=== PATIENT | male | born 1940 | race Caucasian/White ===

== ENCOUNTER 2022-12-16 04:12 | Inpatient (IN) | payer MEDICARE, OTHER, SELFPAY ==
[2022-12-16] VITALS (29 sets, daily range): BP systolic 115–159; BP diastolic 62–79; PULSE 96–134; RESP 14–22; TEMP 36.9–39.5; O2SAT 91–95
--- NOTE | 2022-12-16 04:15 | RT.EKG_ITS ---
APPROVED REPORT Exam: Resting ECG Reason for Exam: rapid heart rate Patient Location: E HR:117 bpm ECG Measurements Heart Rate 117 AXIS LA 180 P 55 QRSd 83 QRS -7 QT 282 T 188 QTc 394 Conclusion Sinus tachycardia...rate> 99 Atrial premature complex...SV complex w/ short R-R interval Repol abnrm suggests ischemia, diffuse leads...ST-T neg, ant/lat/inf I have reviewed and interpreted ECG and agree with software generated interpretation.
--- NOTE | 2022-12-16 04:15 | DI.CT_ITS ---
Exam(s) CT CHEST PE ABD PELVIS W EXAM: CT CHEST PE ABD PELVIS W CLINICAL HISTORY: cough, sob, fever, recent long trip, r/o pe. TECHNIQUE: Imaging Protocol: Axial CT angiography was performed with multi-slice acquisition and mu lti-planar and/or 3D reconstructions. CONTRAST MATERIAL: Intravenous: Omnipaque 350 Contrast volume:100 ml COMPARISON: CR CHEST 2 VIEWS PA,LAT from 02/27/2016 FINDINGS: CHEST: Pulmonary Arteries: No evidence of filling defect to suggest pulmonary emboli. Tracheobronchial tree: Patent where visualized. Mediastinum and Iris: Mildly enlarged subcarinal lymph nodes, presumably reactive. Small hiatal cassie ia. Pulmonary parenchyma: Underlying emphysematous changes. No acute infiltrates right upper lobe and po sterior right lower lobe. Pleura: No effusion or pneumothorax. Heart: The heart is not dilated. No coronary artery calcifications are seen. Aorta: Descending aorta 3.3 cm. Bones: Normal. Tubes, Catheters, and Lines: None ABDOMEN: Liver: Normal density. Cyst superior left lobe. No suspicious mass. Portal, Superior Mesenteric, and Splenic Veins: Unremarkable. Gallbladder and Biliary Tract: No radiodense calculus or dilation. Pancreas: Normal density, no abnormal calcifications or inflammatory process. Spleen: Normal. Adrenals: No masses seen. Kidneys: Normal size, contour and axis. No radiodense stones or obstructive uropathy. No masses seen. Abdominal Aorta: Abdominal portion non-dilated. Rsht-hb-vwxsmsbe atherosclerotic changes. Bowel: Diverticulosis. No evidence of diverticulitis. No obstruction or bowel wall thickening. Peritoneal Cavity: No ascites, collection or mesenteric inflammatory response. Lymph Nodes: Within normal limits. Bones: Degenerative changes. Soft Tissues: Unremarkable. PELVIS: Bladder: Symmetric distention, no gross wall thickening. Reproductive Organs: Unremarkable as visualized. Lymph Nodes: Within normal limits. Bones: Within normal limits for age.. IMPRESSION: 1. No evidence of pulmonary embolism. Right upper and lower lobe infiltrates. Underlying emphysemato us changes. 2. No acute abdominal or pelvic process. RADIATION DOSE DELIVERED: 853.52mGy.cm Total DLP DATA REPOSITORY: All CT scans at this facility are submitted to the National Radiology Data Registry (NRDR) Dose Index Registry (DIR) with the [employer] (ACR). RADIATION OPTIMIZATION: All CT scans at this facility use at least one of these dose optimization te chniques: automated exposure control; mA and/or kV adjustment per patient size (includes targeted exa ms where dose is matched to clinical indication); or iterative reconstruction.
--- NOTE | 2022-12-16 04:30 | W.ED.GENAD ---
Discharge Plan Disposition Patient Disposition: Admit to [facility] Condition: Improving Discharge Details Chief Complaint: Fever Clinical Impression: Community acquired pneumonia Primary Care Provider: Marcella,Local ED Provider: Chuy Cat Home Meds and New Rx's Prescriptions: No Action lansoprazole 30 MG capsule,delayed release(DR/EC) 30 mg PO DAILY vitamin E 1,000 UNIT capsule 1 cap PO DAILY Centrum Silver 1 EACH tablet 1 tab PO DAILY Medical Decision Making 82-year-old male with no significant past medical history except for mild reflux presents today for evaluation of nausea, vomiting, diarrhea, fever, chills, cough and shortness of breath. Patient just got back from a trip to [place]. They got back just 3 to 4 days ago. He states that he was doing well until last night when he woke up coughing, short of breath, and then developed subsequent nausea vomiting diarrhea and fever. He denies any chest pain. He does admit to slight difficulty breathing before but feels better now. He denies symptoms like this before. He denies any hematemesis, melena, or acholic stool. No trauma. No headache or neck pain. No other complaints at this time. He did take Tylenol prior to arrival. Family who is at bedside states that his temperature before arrival was greater than 103 at home. Exam demonstrates very interactive and pleasant male, who is tachycardic. Blood pressure elevated. EKG shows diffuse anterior lateral depressions. Concern for sepsis, PE, or pneumonia. Will evaluate for concerning etiologies, monitor closely and reassess. We will rehydrate and get blood cultures as well. 5:49 AM Heart rate has come down from the 130s to the low 100s. Blood pressure remained stable. Laboratory work-up shows no white count yet, but there is a notable left shift. Lactate is 1.8, procalcitonin is mildly elevated at 0.9. Troponin normal. We are still pending formal read from CT scan, COVID flu and RSV are negative. Upon my review of the CAT scan I do see evidence of notable pneumonia, no large PEs. We will start ceftriaxone and azithromycin for community-acquired pneumonia with atypical coverage. With the patient's diarrhea I have sent a Legionella antigen test. Patient denies being around any significant water sources that could accumulate mold or bacteria in that regard, but they did just go up to [place] camp 3 days ago and start that however they were not certainly deep into it. With the patient's age, sepsis presentation, risk factors I do feel that he would benefit from at least 24 hours of inpatient IV antibiotics. 6:[address] scan shows no evidence of pulmonary embolism. It does confirm evidence of infiltrates in the right upper lobe. I suspect this pneumonia is the cause of his fever chills and tachycardia and infection. Antibiotics have been started. I did contact the hospitalist Dr. Calhoun, he agrees with the assessment and plan. Patient will be admitted. I will place bridging orders at his request on his behalf. I have extensively reviewed the treatment plan with the patient. I have addressed all patient concerns at this time. I have also discussed the plan with the admitting physician and they agree with the current assessment and plan and have agreed to assume responsibility for the patient. All parties demonstrate verbal understanding and agreement with our assessment and plan at this time. The documentation in this chart was dictated using [employer] dictation software. Please excuse any dictation errors. FINDINGS: Pulmonary arteries: No pulmonary artery filling defects. Aorta: Descending aorta minimally dilated to 3.3 cm. No aortic aneurysm. No aortic dissection. Lungs: Moderate to severe emphysema. Superimposed, scattered infiltrates in right upper lobe. Pleural spaces: Unremarkable. No pneumothorax. No pleural effusion. Heart: Heart normal in size. Heart RV/LV ratio: RV/LV ratio is 1.2. Coronary arteries: No coronary artery calcifications. Lymph nodes: Unremarkable. No enlarged lymph nodes. Diaphragm: Small to moderate size hiatal hernia. Liver: Circumscribed 2.2 cm lesion in left lobe of liver, favored to be a cys Bones/joints: The spine demonstrates mild degenerative changes at multiple levels. Soft tissues: Unremarkable. IMPRESSION: 1. No pulmonary artery embolism demonstrated. 2. No aortic aneurysm or dissection. 3. Emphysema. 4. Superimposed scattered infiltrates in right upper lobe. 5. Hiatal hernia. Thank you for allowing us to participate in the care of your patient. Dictated and Authenticated by: Kolton Dillon DO 12/16/2022 6:16 AM Eastern Time ([place] & [place]) HPI General Date/Time Provider Initiated Documentation: 12/16/22 04:22. HPI Narrative: 82-year-old male with no significant past medical history except for mild reflux presents today for evaluation of nausea, vomiting, diarrhea, fever, chills, cough and shortness of breath. Patient just got back from a trip to [place]. They got back just 3 to 4 days ago. He states that he was doing well until last night when he woke up coughing, short of breath, and then developed subsequent nausea vomiting diarrhea and fever. He denies any chest pain. He does admit to slight difficulty breathing before but feels better now. He denies symptoms like this before. He denies any hematemesis, melena, or acholic stool. No trauma. No headache or neck pain. No other complaints at this time. He did take Tylenol prior to arrival. Family who is at bedside states that his temperature before arrival was greater than 103. Related Data Home Medications Medication Instructions Recorded Confirmed lansoprazole 30 mg capsule,delayed 30 mg PO DAILY 01/12/13 12/16/22 release dciakwdq-ann-rgyoz acid 0.4 1 tab PO DAILY 04/09/15 12/16/22 mg-lycopene 300 mcg-lutein 250 mcg tablet (Centrum Silver) vitamin E 670 mg (1,000 unit) 1 cap PO DAILY 04/09/15 12/16/22 capsule Allergies Allergy/AdvReac Type Severity Reaction Status Date / Time No Known Allergies Allergy Unverified 02/27/16 10:56 General Stated Complaint: Fever JALYN: 3 Review of Systems All systems reviewed & are unremarkable except as noted in HPI and below PFSH All Active Problems (Updated 12/16/22 @ 06:25 by Chuy Cat DO) Community acquired pneumonia (Acute) Social History Smoking/Tobacco Use Status: Former Tobacco Use Smoking risk assessment performed?: Yes Alcohol Intake: current Alcohol Intake frequency: a few times a week Drug use: Never Substance use type: does not use Do you feel safe at home: Yes Do you feel safe in your relationship?: Yes Exam Narrative Exam Narrative: 1.Const: Well-nourished, Well-developed, appearing stated age 2.Eyes: PERRL, no conjunctival injection, and symmetrical lids. 3.ENT: Atraumatic external nose and ears. Dry MM. Neck: Symmetric, trachea midline, No thyromegaly. No nuchal rigidity 4.CVS: +S1/S2, No murmurs or gallops. Peripheral pulses 2+ and equal in all extremities. Brisk capillary refill in all extremities. 5.RESP: Unlabored respiratory effort. Clear to auscultation bilaterally. No wheezes rales or rhonchi 6.GI: Soft, Nontender/Nondistended, No hepatosplenomegaly. No guarding or rebound. 7.MSK: Normocephalic/Atraumatic, Extremities w/o deformity or ttp No cyanosis or clubbing, Normal movement of all extremities 8.Skin: Warm, Dry. No rashes or lesions. 9.Neuro: dispute coordinator II-XII grossly intact. Sensation grossly intact, no focal neurologic deficits. 10.Psych: (AAO) x3. Appropriate mood and affect Course Vital Signs Vital signs: Vital Signs Temperature 37.1 C 12/16/22 04:18 Pulse 124 H 12/16/22 04:18 Respiratory Rate 18 12/16/22 04:18 Blood Pressure 152/78 H 12/16/22 04:18 Pulse Oximetry 94 12/16/22 04:18 Temperature 37.1 C 12/16/22 04:18 Pulse 124 H 12/16/22 04:18 Respiratory Rate 18 12/16/22 04:18 Respiratory Effort Normal, Non-Labored 12/16/22 04:24 Blood Pressure 152/78 H 12/16/22 04:18 Blood Pressure Position Supine 12/16/22 04:18 Pulse Oximetry 94 12/16/22 04:18 Oxygen Delivery Method Room Air 12/16/22 04:18 Oxygen Flow Rate 0 12/16/22 04:18 Lab/Test Results Lab/Test Results: 12/16/22 04:28 Blood Blood Culture - Pending 12/16/22 04:28 Blood Blood Culture - Pending POCUS Exam (ED) Limited Cardiac Exam DATE OF EXAM: 12/16/22 TIME OF EXAM: 04:42 PROVIDER THAT PERFORMED THE STUDY: Chuy Cat IS THIS A REPEAT EXAM DURING THIS ENCOUNTER: no REASON FOR EXAM: Dyspnea VISUALIZED STRUCTURES: Left atrium, Left ventricle and Right ventricle VIEW OBTAINED: Parasternal long-axis PERTINENT FINDINGS/IMPRESSION: Other (Concern for apex dysfunction) Exam complete PAWSS Have you Been Recently Intoxicated or Drunk Within the Last 30 days?: No Have you Ever Experienced Previous Episodes of Alcohol Withdrawal?: No Have you ever Experienced Withdrawal Seizures?: No Have you ever Experienced Delirium Tremens(DT)s?: No Have you ever undergone Alcohol Rehabilitation Treatment (i.e, inpt ot outpatient treatment programs)?: No Have you ever Experienced Blackouts?: No Have you ever Combined Alcohol with other Downers within the last 90 days?: No Have you ever Combined Alcohol with any other Substance of Abuse during the last 90 days?: No Positive Blood Alcohol level on Presentation? [PCS.BAL]: No Evidence of Increased Autonomic Activity (i.e. HR>120, tremor, sweating, agitation, nausea)?: No Result: 0
[2022-12-16 04:39] LABS: BE (Venous) 1 mmol/L (-2-3); HCO3 (Venous) 24 mmol/L (23-28); O2 Sat (Venous) 79 %; TCO2 (Venous) 22 mmol/L (24-29); pCO2 (Venous) 34 mmHg (41-51); pH (Venous) 7.46 (7.31-7.41); pO2 (Venous) 40 mmHg
[2022-12-16] MEDS: Normal Saline 1,000 ML 1000 ML IV (04:39)
[2022-12-16 04:40] LABS: Abs Immature Grans 0.03 10^3/uL (0.0-0.06); Absolute Basophil Count 0.04 10^3/uL (0.0-0.2); Absolute Eosinophil Count 0.02 10^3/uL (0.0-0.7); Absolute Lymphocyte Count 0.67 10^3/uL (1.2-3.4); Absolute Monocyte Count 0.59 10^3/uL (0.1-0.8); Absolute Neutrophil Count 9.19 10^3/uL (1.2-6.7); Basophils % 0.4; Eosinophils % 0.2; HCT 34.8 % (40.0-50.0); HGB 12.2 g/dL (13.5-17.5); Immature Grans % 0.3; Lactate 1.8 mmol/L (0.6-1.4); Lymphocytes % 6.4; MCH 32.4 pg (27.0-33.0); MCHC 35.1 % (32.0-36.0); MCV 93 fL (80-95); MPV 9.5 fL (8.0-11.0); Monocytes % 5.6; Neutrophils % 87.1; Platelet Count 199 10^3/uL (130-400); RBC 3.76 10^6/uL (4.36-5.78); RDW 13.4 % (11.8-14.1); RDW-SD 45.4 fL; WBC 10.54 10^3/uL (4.4-10.8)
--- NOTE | 2022-12-16 04:53 | NUR.NOTE ---
Nursing Note: Pt comes to the ED via walk-in, states that he has been having NVD since yesterday and today began to have elevated temp. the pt states increased weakness and slightly dizzy, denies CP but stated he did have some SOB. Pt states he takes iron so he normally has dark stools. prior to coming to the ED his gave him x2 po Tylenol which helped decrease his fever. IV established, EKG,monitor and labs including x2 sets BC drawn. Pt states he recently arrived back to [place] after driving home form [place] and staying in [place] for a night. Pt denies any pain and has a steady gait. added he had covid last month from a cruise he was on and was treated for that while on the ship.
[2022-12-16 05:04] LABS: ALT 28 U/L (16-63); AST 31 U/L (15-37); Albumin 3.9 g/dL (3.4-5.0); Alkaline Phosphatase 81 U/L (46-116); Anion Gap 10.2 mmol/L (3-11); BUN 17 mg/dL (7-18); Bilirubin, Total 0.9 mg/dL (0.2-1.0); CO2 23.8 mmol/L (21.0-32.0); CREATININE 1.1 mg/dL (0.70-1.30); Calcium 9.5 mg/dL (8.5-10.1); Chloride 102 mmol/L (98-107); Estimated GFR 66.61 (mL/min/1.73m2); Glucose 118 mg/dL (74-106); Potassium 3.6 mmol/L (3.5-5.1); Sodium 136 mmol/L (136-145); TSH (W/Ref FT4) 1.36 uIU/mL (0.36-3.74); Total Protein 7.7 g/dL (6.4-8.2); Troponin I < 50 ng/L (<or=60)
[2022-12-16 05:10] LABS: Procalcitonin 0.9 ng/mL
--- OUTSIDE RECORDS SUMMARY | 2022-12-16 05:10 | XMS_ITS | Summary of Care ---
Author Name Unknown Organization [facility] Address [id number] [place] [id number] Care Team Providers Care Adobe Block Maker Name Role Phone Unassigned, PCP - Unable to obtain Primary Care Physician Unavailable Encounter [facility] [id number] Date(s): 09/26/22 - 09/26/[address] [address]- [place] Encounter Diagnosis COVID-19(Discharge Diagnosis) - 09/26/22 Attending Physician: Adelso Carreno APRN Admitting Physician: JOSSELYN , [facility] Allergies, Adverse Reactions, Alerts No Known Allergies Assessment and Plan Extracted from: Title:[facility] Note Author:Adelso Carreno APRN Date:09/26/22 1.??COVID-19??(COVID-19)(U07 .1) Prescription for Paxlovid and benzonatate sent to pharmacy.?? Discussed with patient if??problems obtain a prescription to reach out to his PCP.?? Discussed with patient isolation protocols. Take medication ??as directed follow up with PCP or urgent care if no improvement Call or go to the ER if the following occur: Increasing Pain, Fever increases, Chest Pain, shortness of breath ? Patient education provided with Visit Summary? Ordered: benzonatate, 1-2 caps, PO, 3xDaily, PRN Cough and congestion, X 10 day(s), # 30 cap(s), 0 Refill(s), Pharmacy: [facility]/pharmacy #[id number], 1-2 caps PO 3xDaily,x10 day(s),PRN:Cough and congestion, 1, 182.88, cm, 09/26/22 11:34:00 EST, Height cm, 61.235, kg, 09/26/22 11:34:... nirmatrelvir-ritonavir, See Instructions, PO, 2xDaily, 150 mg nirmatrelvir (one 150 mg tablets) with 100 mg ritonavir (one 100 mg tablet), with both tablets taken together twice daily for 5 days, # 1 EA, 0 Refill(s), Pharmacy: [facility]/pharmacy #[id number], 150 mg nirmatrelvir (one 150... ?? Medications benzonatate 100 mg oral capsule 1-2 caps, PO, 3xDaily, PRN Cough and congestion, X 10 day(s), # 30 cap(s), 0 Refill(s), Pharmacy: [facility]/pharmacy #[id number], 1-2 caps PO 3xDaily,x10 day(s),PRN:Cough and congestion, 1, 182.88, cm, 09/26/22 11:34:00 EST, Height cm, 61.235, kg, 09/26/22 11:34:... Start Date: 09/26/22 Stop Date: 10/06/22 Status: Ordered Paxlovid 150 mg-100 mg (150 mg-100 mg Dose) oral tablet See Instructions, PO, 2xDaily, 150 mg nirmatrelvir (one 150 mg tablets) with 100 mg ritonavir (one 100 mg tablet), with both tablets taken together twice daily for 5 days, # 1 EA, 0 Refill(s), Pharmacy: [facility]/pharmacy #[id number], 150 mg nirmatrelvir (one 150... Start Date: 09/26/22 Stop Date: 10/02/22 Status: Ordered Problem List Condition Confirmation Course Effective Dates Status Health St [facility] Informant History of COVID-19 Confirmed Active Vital Signs Most recent to oldest [Reference Range]: 1 Temperature Oral [96.4-99.1 DegF] 100.4 DegF *HI* (09/26/22 11:34 AM) Pulse Rate [60-110 bpm] 110 bpm (09/26/22 11:34 AM) Respiratory Rate [12-20 br/min] 18 br/mi n (09/26/22 11:34 AM) Mean Arterial Pressure, Cuff 119 mmHg (09/26/22:34 AM) Blood Pressure [90-120/60-90 mmHg] 166/9 5mmHg *HI* (09/26/22:34 AM) Weight, Actual kg 61.235 kg (09/26/22:34 AM) Weight, Actual lbs 135 lb (09/26/22 AM) Weight, Actual lbs - manual 135 lb (09/26/22:34 AM) Measured Weight Yes (09/26/22 AM) Height cm 182.88 cm (09/26/22:34 AM) EHUM Responses Feet/Inches (09/26/22 AM) Height Feet with Inches 6 ft (09/26/22 AM) Height Inches 72 inch(es) (09/26/22: AM) Body Surface Area 1.7637 (09/26/22: AM) Body Mass Index (BMI) 18.3 kg/m2 (09/26/22 AM) Forbes Body Weight Calculated 77.6 kg (09/26/22: AM) Note * Adelso Carreno APRN: PERFORM Event Display: [facility] Provider Notes Authored Date: [id number] Chief Complaint Cough, fever x 3 days. Tylenol at 9am Visit Information Primary Care Physician:?Unassigned , PCP - Unable to obtain Referring Physician: History of Present Illness 82-year-old male accompanied by presents to clinic with complaint of??nausea, cough, fever,??congestion??and sore throat x3 days.?? States he recently returned from a cruise.?? States he took Tylenol with some relief.?? States last dose at 9 AM.?? States positive COVID-vaccine.?Denies any history of liver or kidney disease.?Denies taking cholesterol medication.?? Denies vomiting, diarrhea, abdominal pain, shortness of breath or chest pain. Review of Systems Constitutional-see HPI HEENT- SEE HPI Respiratory- SEE HPI Cardiovascular-No chest pain, no palpitations Abdomen- No diarrhea, No nausea or vomiting, No cramping abdominal pain, no rectal bleeding Genitourinary- No dysuria, No hematuria, no frequency, no urgency Musculoskeletal-No joint pain, no muscle pain, no swelling Psychiatry- No anxiety/ depression, No insomnia, No memory loss Skin- No rash, masses or lesions Physical Exam Vitals & Measurements T:??100.4?F ??(Oral)?? HR:??110??(Pulse)?? RR:??18?? BP:??166/95?? SpO2:??96%?? HT:??182.88??cm?? HT:??72??inch(es)?? WT:??135??lb?? WT:??61.235??kg?? BMI:??18.3?? General-Well nourished , well developed, No acute distress HEENT- NCAT, TM clear, clear nasal discharge, Mild Pharyngeal erythema, Mild nasal erythema. No cervical lymphadenopathy Respiratory- No retractions noted, Breath sounds were CTA bilaterally, No rales, rhonchi ??or wheezes heard, nonproductive cough noted CVS- Regular rate and rhythm, no murmurs or additional sounds, S1 and S2 heard Skin - Normal color, No rashes or masses Psych- AOx3, normal mood, no anxiety/ depression, judgement -good Assessment/Plan 1.??COVID-19??(COVID-19)(U07.1) Prescription for Paxlovid and benzonatate sent to pharmacy.?? Discussed with patient if??problems obtain a prescription to reach out to his PCP.?? Discussed with patient isolation protocols. Take medication ??as directed follow up with PCP or urgent care if no improvement Call or go to the ER if the following occur: Increasing Pain, Fever increases, Chest Pain, shortness of breath Patient education provided with Visit Summary?? Ordered: benzonatate, 1-2 caps, PO, 3xDaily, PRN Cough and congestion, X 10 day(s), # 30 cap(s), 0 Refill(s), Pharmacy: [facility]/pharmacy #[id number], 1-2 caps PO 3xDaily,x10 day(s),PRN:Cough and congestion, 1, 182.88, cm, 09/26/22 11:34:00 EST, Height cm, 61.235, kg, 09/26/22 11:34:... nirmatrelvir-ritonavir, See Instructions, PO, 2xDaily, 150 mg nirmatrelvir (one 150 mg tablets) with 100 mg ritonavir (one 100 mg tablet), with both tablets taken together twice daily for 5 days, # 1EA, 0 Refill(s), Pharmacy: [facility]/pharmacy #[id number], 150 mg nirmatrelvir (one 150... ?? Medications benzonatate 100 mg oral capsule, 1-2 caps, PO, 3xDaily, PRN Paxlovid 150 mg-100 mg (150 mg-100 mg Dose) oral tablet, See Instructions, PO, 2xDaily Allergies NKA Social History Tobacco Smokeless Tobacco Use: Never (09/26/22) Smoking Tobacco Use: Never a smoker (09/26/22) Lab Results Lab results - current encounter Covid 19 Ag Result: POS Anshul Abnormal A Influenza POC [facility]: Negative B Influenza POC [facility]: Negative Diagnostic Results Radiology Results ED(09/25/22 00:00 - 09/26/22 12:03) ?? Electronically Signed By: Adelso Carreno APRN, on 09.26.2022 12:03 PM Electronically Signed By: Patient Care team information Care Team Personnel Name: Unassigned , PCP - Unable to obtain Member Role: PCP Lifetime Name: Adelso Carreno APRN Position: [facility] Nurse Practitioner Urgent Member Role: Nurse Practitioner Address: Address: [address] [place] [phone]
--- OUTSIDE RECORDS SUMMARY | 2022-12-16 05:10 | XMS_ITS | Summary of Care ---
Author Name Unknown Organization [facility] Address [id number] [place] [id number]- Care Team Providers Care Package Line Operator Name Role Phone Unassigned, PCP - Unable to obtain Primary Care Physician Unavailable Encounter [facility] [id number] Date(s): 10/05/22 - 10/05/[address] [address]- [place] Encounter Diagnosis COVID-19(Discharge Diagnosis) - 10/05/22 Attending Physician: Adelso Carreno APRN Admitting Physician: [facility] Allergies, Adverse Reactions, Alerts No Known Allergies Assessment and Plan Extracted from: Title:[facility] Note Author:Adelso Carreno APRN Date:10/05/22 1.??COVID-19??(COVID-19)(U07 .1) Continue ??medication previously prescribed for cough. ??COVID isolation and mask??guidelines discussed with patient. ??Strict ER precautions given. follow up with PCP or urgent care if no improvement Call or go to the ER if the following occur: Increasing Pain, Fever increases, Chest Pain, shortness of breath ? Medications Paxlovid 150 mg-100 mg (300 mg-100 mg Dose) oral tablet 0 Refill(s), 1 Start Date: 10/05/22 Status: Ordered Problem List Condition Confirmation Course Effective Dates Status Health St [facility] Informant History of COVID-19 Confirmed Active Vital Signs Most recent to oldest [Reference Range]: 1 Temperature Temporal Artery [97.3-100 De gF] 98.3 DegF (10/05/22 1:53 PM) Pulse Rate [60-110 bpm] 75 bpm (10/05/22 1:53 PM) Respiratory Rate [12-20 br/min] 18 br/mi n (10/05/22 1:53 PM) Mean Arterial Pressure, Cuff 93 mmHg (10/05/22 1:53 PM) Blood Pressure [90-120/60-90 mmHg] 128/7 6mmHg *HI* (10/05/22 1:53 PM) Weight, Actual kg 61.235 kg (10/05/22 1:53 PM) Weight, Actual lbs 135 lb (10/05/22 1:53 PM) Weight, Actual lbs - manual 135 lb (10/05/22 1:53 PM) Measured Weight Yes (10/05/22 1:53 PM) Height cm 182.88 cm (10/05/22 1:53 PM) EHUM Responses Feet/Inches (10/05/22 1:53 PM) Height Feet with Inches 6 ft (10/05/22 1:53 PM) Height Inches 72 inch(es) (10/05/22 1:53 PM) Body Surface Area 1.7637 (10/05/22 1:53 PM) Body Mass Index (BMI) 18.3 kg/m2 (10/05/22 1:53 PM) [place] Body Weight Calculated 77.6 kg (10/05/22 1:53 PM) Note * Adelso Carreno APRN: PERFORM Event Display: [facility] [place] Notes Authored Date: [id number] Chief Complaint f/u 09/26 covid pos. states still feeling unwell. some SOB, COUGH, CONGESTION. Visit Information Primary Care Physician:?Unassigned , PCP - Unable to obtain Referring Physician: History of Present Illness 82-year-old male accompanied by presents to clinic with complaint of cough, congestion??and occasional shortness of breath.?? States??he tested positive for COVID virus on 09/26/2022 and was prescribed Paxlovid.?? States he was feeling better and had a negative COVID test on 09/30/2022.?? States??then??his fever returned and he had a positive test on 10/03/2022.?? States he mowed his grass yesterday without any difficulty.?? States he was concerned that he may need another course of Paxlovid.?? Denies loss of taste or smell, nausea, vomiting, diarrhea, abdominal??pain or chest pain. Review of Systems Constitutional-see [...] or lesions Physical Exam Vitals & Measurements T:??98.3?F ??(Temporal Artery)?? HR:??75??(Pulse)?? RR:??18?? BP:??128/76?? SpO2:??99%?? HT:??182.88??cm?? HT:??72??inch(es)?? WT:??135??lb?? WT:??61.235??kg?? BMI:??18.3?? General-Well nourished , well developed, No acute distress HEENT- NCAT, TM clear,??no nasal discharge, Mild Pharyngeal erythema, Mild nasal erythema. No cervical lymphadenopathy Respiratory- No retractions noted, Breath sounds were CTA bilaterally, No rales, rhonchi ??or wheezes heard CVS- Regular rate and rhythm, no murmurs or additional sounds, S1 and S2 heard Skin - Normal color, No rashes or masses Psych- AOx3, normal mood, no anxiety/ depression, judgement -good Assessment/Plan 1.??COVID-19??(COVID-19)(U07.1) Continue ??medication previously prescribed for cough. ??COVID isolation and mask??guidelines discussed with patient. ??Strict ER precautions given. follow up with PCP or urgent care if no improvement Call or go to the ER if the following occur: Increasing Pain, Fever increases, Chest Pain, shortness of breath Medications benzonatate 100 mg oral capsule, 1-2 caps, PO, 3xDaily, PRN Paxlovid 150 mg-100 mg (300 mg-100 mg Dose) oral tablet Allergies NKA Social History Tobacco Smokeless Tobacco Use: Never (10/05/22) Smoking Tobacco Use: Never a smoker (10/05/22) Lab Results Lab results - current encounter Covid 19 Ag Result: POS Anshul Abnormal Diagnostic Results Radiology Results ED(10/04/22 00:00 - 10/05/22 14:38) ?? Electronically Signed By: Adleso Carreno APRN, on 10.05.2022 02:39 PM Electronically Signed By: Patient Care team information Care Team Personnel Name: Unassigned , PCP - Unable to obtain Member Role: PCP Lifetime Name: Adelso Carreno APRN Position: [facility] Nurse Practitioner Urgent Member Role: Nurse Practitioner Address: Address: [id number] [place] [id number]
[2022-12-16 05:31] LABS: COVID-19 PCR Negative (Negative); Influenza A PCR Negative (Negative); Influenza B PCR Negative (Negative); RSV PCR Negative (Negative)
[2022-12-16 05:32] LABS: Source Nasopharynx
[2022-12-16] MEDS: Omnipaque 350 MG/ML 100 ML BTL IJ (05:43)
[2022-12-16] MEDS: Normal Saline - Diluent 50 ML VIAL IJ (05:44)
[2022-12-16] MEDS: cefTRIAXone 2 GM/50 ML BAG IVPB (05:52)
[2022-12-16] MEDS: AZITHROMYCIN 500 MG in Normal Saline 250 ML 250 MG IVPB (05:55)
--- NOTE | 2022-12-16 06:16 | DI.VRAD_ITS ---
PROCEDURE INFORMATION: Exam: CTA Chest With Contrast Exam date and time: 12/16/2022 5:34 AM Age: 82 years old Clinical indication: Cough and fever and shortness of breath; Additional info: Cough, SOB, fever, recent long trip, R/O pe TECHNIQUE: Imaging protocol: Computed tomographic angiography of the chest with contrast. 3D rendering (Not supervised by radiologist): MIP and/or 3D reconstructed images were created by the technologist. Radiation optimization: All CT scans at this facility use at least one of these dose optimization techniques: automated exposure control; mA and/or kV adjustment per patient size (includes targeted exams where dose is matched to clinical indication); or iterative reconstruction. Contrast material: OMNI 350; Contrast volume: 100 ml; Contrast route: INTRAVENOUS (IV); COMPARISON: CR CHEST 2 VIEWS PA,LAT 02/27/2016 11:18 AM FINDINGS: Pulmonary arteries: No pulmonary artery filling defects. Aorta: Descending aorta minimally dilated to 3.3 cm. No aortic aneurysm. No aortic dissection. Lungs: Moderate to severe emphysema. Superimposed, scattered infiltrates in right upper lobe. Pleural spaces: Unremarkable. No pneumothorax. No pleural effusion. Heart: Heart normal in size. Heart RV/LV ratio: RV/LV ratio is 1.2. Coronary arteries: No coronary artery calcifications. Lymph nodes: Unremarkable. No enlarged lymph nodes. Diaphragm: Small to moderate size hiatal hernia. Liver: Circumscribed 2.2 cm lesion in left lobe of liver, favored to be a cyst. Bones/joints: The spine demonstrates mild degenerative changes at multiple levels. Soft tissues: Unremarkable. IMPRESSION: 1. No pulmonary artery embolism demonstrated. 2. No aortic aneurysm or dissection. 3. Emphysema. 4. Superimposed scattered infiltrates in right upper lobe. 5. Hiatal hernia. Dictated and Authenticated by: Kolton Dillon MD. Ordering:MARGIE Vera MD
[2022-12-16 06:17] LABS: Bilirubin Negative (Negative); Blood Negative (Negative); Clarity Clear (Clear); Glucose Negative (Negative); Ketones Negative (Negative); Leukocyte Esterase Negative (Negative); Nitrite Negative (Negative); Urobilinogen 0.2 mg/dL (Up to 0.2)
--- NOTE | 2022-12-16 06:35 | HPE_ITS ---
Date of service: 12/16/22 Time of Service: 06:35 Assessment and Plan Assessment and plan (1) Community acquired pneumonia: Status: Acute Assessment and plan: Mr. Hjai's presentation and CT scan are conistent with community acquired pneumonia. History suggests aspiration. Given his age, presenting tachycardia and signs of heart stress on EKG, I agree with admission even though his CURB 65 score is only 1 suggesting lower risk. He has been started appropriately on ceftriaxone and azithromycin, will continue these. Blood cultures pending, I added sputum cultures. Legionella antigen also reasonable given associated loose stools. Of note I found PFT results from 2019 showing mild obstructive disease and severe diffusion restriction. He is not treated for COPD, CT does not suggest emphysema, and he is not presenting as a COPD exacerbation, but his abnormal lung function should be considered if he does not respond to treatment as expected. (2) Abnormal EKG: Status: Acute Assessment and plan: He has ST depressions suggesting some stress on his heart, presumably related to the lung infection. He colin chest pain and initial troponon negative with second troponin level is pending. Some suggestion of apical dysfunction on POCUS. HE last had an MPI in 2019, and repeat should be considered though outpatient would be reasonable as long as troponins continue negative. (3) GERD (gastroesophageal reflux disease): Status: Chronic Assessment and plan: Continue outpatient PPI. Discussed alcohol consumption, encouraged healthy levels of 1/day on average over 65 yo. (4) DVT prophylaxis: Status: Acute Assessment and plan: LMWH (5) Discharge planning issues: Status: Acute Assessment and plan: Admitted to medical floor for observation and IV antibiotics. I would anticipate discharge after 24-36 hours if he is responding to therapy. He would like to establish local PCP. He may beneift from PCV 20 vaccine (had on pneumonia vaccine, presumably PCV 23). History of Present Illness History of Present Illness Chief Complaint: cough and fever Narrative: 82 yo M with past medical history only significant for GERD, presenting with acute onset of cough and fever the evening prior to admission. He was in his [facility] state [facility] health prior to last night. He had recently driven from [place] to [place] 12/08/22 and then from [place] to [place] on 12/14/22, a day prior to symtpom onset. He had friends over to his summer home in [facility] the afternoon prior to admission. He ate well and had exactly 4 beers, which is not uncommon for him. He went to bed as normal at 9pm. At 10:30pm he woke up with a cough a nd shortness of breath. He coughed up thick sputum, and felt like he might have coughed up some food, no blood. He developed fevers, vomited 3 times, and had 3 episodes of watery diarrhea after a normal bowell movement. He felt some tightness in the right side of his chest. He felt like he was getting worse and his drove him into the hospital. He states he has never had pneumonia. He has not had difficulty swallowing. He had some shortness of breath in 2019 and had a reassuring cardiac work up including MPI and echocardiogram. He had PFTs that showed mild obstruction and severely diminished diffusion, but he has never been diagnosed or treated for lung disease. Review of Systems Constitutional Constitutional: Denies anorexia, Reports body ache(s), Reports fatigue, Denies headache(s), Denies weight gain and Denies weight loss Eyes Eyes: Denies change in vision and Denies irritation ENT Ears, Nose, Mouth, and Throat: Denies change in voice, Denies dental pain, Denies dysphagia, Denies dizziness, Denies headache(s), Denies mouth lesions, Denies nasal congestion, Reports nasal discharge (had some runny nose when in [place] he related to allergies), Denies odynophagia and Denies sore throat Cardiovascular Cardiovascular: Reports as per HPI, Denies chest pain and Denies palpitations Respiratory Respiratory: Denies wheezing Gastrointestinal Gastrointestinal: Denies abdominal pain, Denies melena, Denies hematochezia, Denies coffee ground emesis, Denies dysphagia, Denies heartburn, Reports fecal incontinence, Denies odynophagia, Denies vomiting and Denies hematemesis Genitourinary Genitourinary: Denies hematuria, Denies dysuria and Denies urinary incontinence Musculoskeletal Musculoskeletal: Denies arthralgias, Denies joint swelling and Denies numbness Integumentary/Breasts Skin/Breast: Denies rash and Denies skin ulcer Neurologic Neurologic: Denies abnormal speech, Denies dizziness, Denies headache(s), Denies localized weakness, Denies numbness and Denies sensory deficit Psychiatric Psychiatric: Denies mood swings Endocrine Endocrine: Reports fatigue and Denies palpitations Hematologic/Lymphatic Hematologic/Lymphatic: Denies easy bleeding Allergic/Immunologic Allergic/Immunologic: Denies wheezing PFSH All Active Problems (Updated 12/16/22 @ 10:31 by Emir Doe) Abnormal EKG (Acute) Discharge planning issues (Acute) DVT prophylaxis (Acute) GERD (gastroesophageal reflux disease) (Chronic) Community acquired pneumonia (Acute) Medical History (Updated 12/16/22 @ 10:31 by Emir Doe) Chronic obstructive pulmonary disease Mild, on PFTs in 2019. Never had clinical disease. Surgical History (Updated 12/16/22 @ 10:31 by Emir Doe) S/P appendectomy S/P hernia repair Social History (Updated 12/16/22 @ 10:33 by Emir Doe) Smoking/Tobacco Use Status: Former Tobacco Use Smoking risk assessment performed?: Yes Alcohol Intake: current Alcohol Intake frequency: a few times a week Counseling given: Yes Counseling provided: provider counseling and reduce to 2 or less/day Drug use: Never Substance use type: does not use Do you feel safe at home: Yes Do you feel safe in your relationship?: Yes Additional Social history: Lives with in [place] in winter, [place] in the summer. Former [employer]. Meds Allergies and Home Medications Allergies Allergy/AdvReac Type Severity Reaction Status Date / Time No Known Allergies Allergy Unverified 02/27/16 10:56 Home Medications Medication Instructions Recorded Confirmed Type lansoprazole 30 mg capsule,delayed 30 mg PO DAILY 01/12/13 12/16/22 History release fjkoydco-fkh-mdirr acid 0.4 1 tab PO DAILY 04/09/15 12/16/22 History mg-lycopene 300 mcg-lutein 250 mcg tablet (Centrum Silver) vitamin E 670 mg (1,000 unit) 1 cap PO DAILY 04/09/15 12/16/22 History capsule Exam Narrative Exam Narrative: GEN: Alert and oriented, pleasant and cooperative, gives linear history. No acute distress at rest. HEENT: Head atraumatic. Conjunctiva clear, no icterus. PEERL, EOMI. no rhinorrhea. MMM, OP benign. Neck is supple with no masses or lymphadenopathy, trachea midline LUNGS: CTAB with normal effort, no wheezing. CV: RRR with no murmurs, gallops, or rubs. ABD: +BS, soft, NT/ND EXT: no cyanosis, clubbing, or edema MSK: No joint redness or swelling NEURO: CN 2-12 grossly intact. Normal movement of 4 extremities. Normal speech and coordination SKIN: No rashes or open wounds. PSYCH: normal mood and affect Results Imaging CT scan - chest: report reviewed (1. No pulmonary artery embolism demonstrated. 2. No aortic aneurysm or dissection. 3. Emphysema. 4. Superimposed scattered infiltrates in right upper lobe. 5. Hiatal hernia. 2.2cm presumed cyst also noted in the liver) Additional studies: POCUS Echocardiogram DATE OF EXAM: 12/16/22 TIME OF EXAM: 04:42 PROVIDER THAT PERFORMED THE STUDY: Chuy Cat IS THIS A REPEAT EXAM DURING THIS ENCOUNTER: no REASON FOR EXAM: Dyspnea VISUALIZED STRUCTURES: Left atrium, Left ventricle and Right ventricle VIEW OBTAINED: Parasternal long-axis PERTINENT FINDINGS/IMPRESSION: Other (Concern for apex dysfunction) EKG: report reviewed and image reviewed (Sinus tachycardia, nl axis and intervals, ST depression in V3-V6) Labs 12/16/22 04:29 12/16/22 04:29 Labs: Laboratory Results - last 24 hr 12/16/22 12/16/22 12/16/22 04:29 04:29 04:29 WBC 10.54 RBC 3.76 L Hgb 12.2 L Hct 34.8 L MCV 93 MCH 32.4 MCHC 35.1 RDW 13.4 Plt Count 199 MPV 9.5 Immature Gran % 0.3 Neutrophils % 87.1 Lymphocytes % 6.4 Monocytes % 5.6 Eosinophils % 0.2 Basophils % 0.4 Nucleated RBC % 0.0 Absolute Neutrophils 9.19 H Absolute Lymphocytes 0.67 L Absolute Monocytes 0.59 Absolute Eosinophils 0.02 Absolute Basophils 0.04 VBG pH VBG pCO2 VBG pO2 VBG HCO3 VBG Total CO2 VBG O2 Saturation VBG Base Excess VBG Lactate 1.8 H Sodium 136 Potassium 3.6 Chloride 102 Carbon Dioxide 23.8 Anion Gap 10.2 BUN 17 Creatinine 1.1 Est GFR (CKD-EPI 2020) 66.61 Glucose 118 H Calcium 9.5 Total Bilirubin 0.9 AST 31 ALT 28 Alkaline Phosphatase 81 Troponin I < 50 Total Protein 7.7 Albumin 3.9 Procalcitonin TSH 1.36 Urine Color Urine Clarity Urine pH Ur Specific [place] Urine Protein Urine Ketones Urine Blood Urine Nitrite Urine Bilirubin Urine Urobilinogen Ur Leukocyte Esterase Urine Glucose COVID-19 Source SARS-CoV-2 (PCR) Influenza Type A (PCR) Influenza Type B (PCR) RSV (PCR) 12/16/22 12/16/22 12/16/22 04:29 04:29 04:33 WBC RBC Hgb Hct MCV MCH MCHC RDW Plt Count MPV Immature Gran % Neutrophils % Lymphocytes % Monocytes % Eosinophils % Basophils % Nucleated RBC % Absolute Neutrophils Absolute Lymphocytes Absolute Monocytes Absolute Eosinophils Absolute Basophils VBG pH 7.46 H VBG pCO2 34 L VBG pO2 40 VBG HCO3 24 VBG Total CO2 22 L VBG O2 Saturation 79 VBG Base Excess 1 VBG Lactate Sodium Potassium Chloride Carbon Dioxide Anion Gap BUN Creatinine Est GFR (CKD-EPI 2020) Glucose Calcium Total Bilirubin AST ALT Alkaline Phosphatase Troponin I Total Protein Albumin Procalcitonin 0.9 TSH Urine Color Urine Clarity Urine pH Ur Specific [place] Urine Protein Urine Ketones Urine Blood Urine Nitrite Urine Bilirubin Urine Urobilinogen Ur Leukocyte Esterase Urine Glucose COVID-19 Source Nasopharynx SARS-CoV-2 (PCR) Negative Influenza Type A (PCR) Negative Influenza Type B (PCR) Negative RSV (PCR) Negative 12/16/22 05:41 WBC RBC Hgb Hct MCV MCH MCHC RDW Plt Count MPV Immature Gran % Neutrophils % Lymphocytes % Monocytes % Eosinophils % Basophils % Nucleated RBC % Absolute Neutrophils Absolute Lymphocytes Absolute Monocytes Absolute Eosinophils Absolute Basophils VBG pH VBG pCO2 VBG pO2 VBG HCO3 VBG Total CO2 VBG O2 Saturation VBG Base Excess VBG Lactate Sodium Potassium Chloride Carbon Dioxide Anion Gap BUN Creatinine Est GFR (CKD-EPI 2020) Glucose Calcium Total Bilirubin AST ALT Alkaline Phosphatase Troponin I Total Protein Albumin Procalcitonin TSH Urine Color Yellow Urine Clarity Clear Urine pH 6.0 Ur Specific [place] 1.010 Urine Protein Negative Urine Ketones Negative Urine Blood Negative Urine Nitrite Negative Urine Bilirubin Negative Urine Urobilinogen 0.2 Ur Leukocyte Esterase Negative Urine Glucose Negative COVID-19 Source SARS-CoV-2 (PCR) Influenza Type A (PCR) Influenza Type B (PCR) RSV (PCR) Last Vital Signs Temp 37.1 C 12/16/22 04:18 Pulse 101 H 12/16/22 06:04 Resp 20 12/16/22 06:04 BP 139/65 12/16/22 06:04 Pulse Ox 94 12/16/22 06:04 PAWSS Have you Been Recently Intoxicated or Drunk Within the Last 30 days?: No Have you Ever Experienced Previous Episodes of Alcohol Withdrawal?: No Have you ever Experienced Withdrawal Seizures?: No Have you ever Experienced Delirium Tremens(DT)s?: No Have you ever undergone Alcohol Rehabilitation Treatment (i.e, inpt ot outpatient treatment programs)?: No Have you ever Experienced Blackouts?: No Have you ever Combined Alcohol with other Downers within the last 90 days?: No Have you ever Combined Alcohol with any other Substance of Abuse during the last 90 days?: No Positive Blood Alcohol level on Presentation? [PCS.BAL]: No Evidence of Increased Autonomic Activity (i.e. HR>120, tremor, sweating, agitation, nausea)?: No Result: 0 Time Spent Time spent with Patient: 55-74 minutes Time was spent: preparing to see the patient(eg.review tests), obtaining and/or reviewing separately otained hiistory, ordering medications,tests, procedures, referring, communicating with other health director of patient care, indepentently interpreting results and counseling the patient
--- NOTE | 2022-12-16 06:47 | NUR.NOTE ---
Nursing Note: report called to the floor
[2022-12-16] MEDS: Enoxaparin 40 MG/0.4 ML SYR SC (07:36)
[2022-12-16] MEDS: Lansoprazole 30 MG CAPCR PO (07:36)
--- NOTE | 2022-12-16 10:55 | INITIAL_ITS ---
- If Service Date Differs Date of service: 12/16/22 Time of Service: 10:55 Care Management Initial Assess REASON FOR HOSPITALIZATION:: community acquired pneumonia PAST MEDICAL HISTORY/PAST SURGICAL HISTORY:: All Active Problems. Abnormal EKG (Acute). Discharge planning issues (Acute). DVT prophylaxis (Acute). GERD (gastroesophageal reflux disease) (Chronic). Community acquired pneumonia (Acute). Medical History. Chronic obstructive pulmonary disease. Mild, on PFTs in 2019. Never had clinical disease. Surgical History. S/P appendectomy. S/P hernia repair PREVIOUS FUNCTIONAL STATUS/SOCIAL/FAMILY SUPPORTS:: Willard lives in [facility] with his S/O, Ruby for the summer. In the Winter, they live in [place]. He has supportive children, who live in [place]. 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 His primary care is located in [place]. He is independent at baseline. CURRENT FUNCTIONAL STATUS:: Benedict was lying in bed when CM met with him. He stated that he still has a fever, and isn't feeling well. CM discussed his PCP, as it is in [place], and he agreed to CM setting up a follow up appointment with the field contact person provider, which was [facility]. SAMY called and made a follow up with Dr. Stern on Monday, December 26 at 10:30am. Per report, clinically he is improving. CM will continue to follow. ADVANCE DIRECTIVES:: Not on file at [facility], will discuss with Willard, and offer forms if he does not have any filled out. Has patient been provided with info about the portal/API?: Yes Did the patient sign up for the portal?: No CODE STATUS:: Full Code INSURANCE COVERAGE / FINANCIAL ISSUES:: MCR/ Supplement- [place] Non-[employer] Retire[employer] CURRENT HOME/COMMUNITY SERVICES/EQUIPMENT:: None PRIMARY CARE PHYSICIAN:: PCP is located in [place]. No local PCP. POTENTIAL DISCHARGE NEEDS:: Evaluations for further needs, follow up appointments. PATIENT/FAMILY EDUCATION NEEDS:: Review discharge instructions and limitations, discussion of self care needs including ask me three. ANTICIPATED BARRIERS TO DISCHARGE:: None identified. TRANSPORTATION:: Via private vehicle by spouse PLAN:: Anticipate Willard will return home once medically cleared. His will drive him home via private vehicle when ready. He will follow up with the Tdoc, coordinated by CM, and his discharge plan of care. CM will continue to follow.
[2022-12-16 11:34] LABS: Troponin I < 50 ng/L (<or=60)
[2022-12-16] MEDS: Acetaminophen 325 MG TAB PO (13:10)
[2022-12-16] MEDS: Ibuprofen 800 MG TAB PO (15:25)
[2022-12-16] MEDS: Doxycycline Hyclate 100 MG CAP PO ×2 (16:23→20:19)
[2022-12-16] MEDS: Normal Saline Flush 10 ML SYR IVP (16:24)
[2022-12-16] MEDS: metroNIDAZOLE 500 MG/100 ML BAG 100 MG IVPB ×2 (16:24→23:51)
--- NOTE | 2022-12-16 17:10 | PHA.REVIEW2 ---
Pharmacy Admission Review - Admission Clinical Review (Last Updated 12/16/22 @ 10:31 by Emir Doe) Abnormal EKG (Acute) Discharge planning issues (Acute) DVT prophylaxis (Acute) Community acquired pneumonia (Acute) No Known Allergies Allergy (Unverified 02/27/16 10:56) Resuscitation Status Full Code Height 6 ft Weight 61.518 kg - Comments Comments/Follow Ups: Treating CAP with a possible aspiration event, spiking temps even after initiation of antibiotics, patient had recent travel. Covering for Lyme, Aspiration Pneumonia. WBC not elevated, Procal 0.9. Watch BC and repeat cultures....all pending, Sputum pending - Renal Dosing Renal Dosing: BUN 17 mg/dL (7-18) 12/16/22 04:29 Creatinine 1.1 mg/dL (0.70-1.30) 12/16/22 04:29 Medications needing adjustments: Reviewed (CrCl~44ml/min) - Anticoagulation Anticoagulation: Hgb 12.2 g/dL (13.5-17.5) L 12/16/22 04:29 Hct 34.8 % (40.0-50.0) L 12/16/22 04:29 Plt Count 199 10^3/uL (130-400) 12/16/22 04:29 Creatinine 1.1 mg/dL (0.70-1.30) 12/16/22 04:29 DVT Prophylaxis: Reviewed Medications: Enoxaparin - Relevant Labs Sodium 136 mmol/L (136-145) 12/16/22 04:29 Potassium 3.6 mmol/L (3.5-5.1) 12/16/22 04:29 Chloride 102 mmol/L (98-107) 12/16/22 04:29 Electrolytes, C-Reactive P, ESR: Reviewed - DM Control DM Control: Glucose 118 mg/dL (74-106) H 12/16/22 04:29 DM Control: N/A - Cardiac Review Cardiac Review: Troponin I < 50 ng/L (<or=60) 12/16/22 11:10 BP, HR, EF%: N/A - Qtc Review QTc: Reviewed (QTC 394) - Home Meds Home Med List reviewed: Reviewed Antibiotic Activity - Pharmacy Antibiotic Review Pharmacy Antibiotic Activity: C/S review (BC pending (two sets), Lyme send outs, Roceph 2gram, Flagyl IV, Azith dc'd, Doxy orally) - Antibiotic Information Antibiotic Review Info: CAP w/Aspiration event: BC pending (two sets), Lyme send outs, Roceph 2gram, Flagyl IV, Azith dc'd, Doxy orally
[2022-12-16] MEDS: Melatonin 3 MG TAB PO (21:51)
[2022-12-16 22:37] LABS: Legionella Ag Detection Urine Negative (Negative)
[2022-12-17 03:15] VITALS: TEMP 37.4
[2022-12-17 06:06] VITALS: TEMP 36.9
[2022-12-17] MEDS: cefTRIAXone 2 GM/50 ML BAG IVPB (06:06)
[2022-12-17 07:38] VITALS: BP 135/70; PULSE 83; RESP 20; TEMP 37.5; O2SAT 92
[2022-12-17] MEDS: metroNIDAZOLE 500 MG/100 ML BAG 100 MG IVPB (08:40)
[2022-12-17] MEDS: Enoxaparin 40 MG/0.4 ML SYR SC (08:40)
[2022-12-17] MEDS: Doxycycline Hyclate 100 MG CAP PO (08:40)
[2022-12-17] MEDS: Lansoprazole 30 MG CAPCR PO (08:40)
[2022-12-17 09:58] LABS: Abs Immature Grans 0.23 10^3/uL (0.0-0.06); Absolute Eosinophil Count 0.03 10^3/uL (0.0-0.7); Absolute Monocyte Count 0.87 10^3/uL (0.1-0.8); Basophils % 0.2; Eosinophils % 0.2; HCT 28.6 % (40.0-50.0); HGB 10.1 g/dL (13.5-17.5); Immature Grans % 1.3; Lymphocytes % 5.1; MCH 33.7 pg (27.0-33.0); MCHC 35.3 % (32.0-36.0); MCV 95 fL (80-95); MPV 9.8 fL (8.0-11.0); Monocytes % 5.1; Neutrophils % 88.1; Platelet Count 165 10^3/uL (130-400); RDW 13.8 % (11.8-14.1); RDW-SD 48.2 fL
[2022-12-17 10:02] LABS: Absolute Basophil Count 0.03 10^3/uL (0.0-0.2); Absolute Lymphocyte Count 0.87 10^3/uL (1.2-3.4); Absolute Neutrophil Count 15.07 10^3/uL (1.2-6.7)
[2022-12-17 10:08] LABS: Anion Gap 9.2 mmol/L (3-11); BUN 19 mg/dL (7-18); CO2 25.8 mmol/L (21.0-32.0); CREATININE 1.2 mg/dL (0.70-1.30); Calcium 8.4 mg/dL (8.5-10.1); Chloride 107 mmol/L (98-107); Glucose 129 mg/dL (74-106); Potassium 3.5 mmol/L (3.5-5.1); Sodium 142 mmol/L (136-145)
--- NOTE | 2022-12-17 11:10 | W.PM.DS.N ---
Date of service: 12/17/22 Time of Service: 11:10 DS: Diagnosis Discharge Diagnosis (1) Community acquired pneumonia: Status: Acute (2) GERD (gastroesophageal reflux disease): Status: Chronic Discharge Plan Disposition Patient Disposition: Home Condition: Improving Discharge Details Reason For Visit: Community Acquired Pneumonia Admit Date/Time: 12/16/22 06:22 Admit Provider: Emir Doe Attending Provider: Emir Doe Primary Care Provider: Marcella,Local Hospital Course Hospital Course: This is an 82 year old male with past medical history only significant for GERD, presenting with acute onset of cough and fever the evening prior.? He was in his normal state of health prior to, he had recently driven from [place] to [place] 12/08/22 and then from [place] to [place] on 12/14/22, a day prior to symptom onset.? During th night, he woke up with a cough and shortness of breath.? He coughed up thick sputum, and felt like he might have coughed up some food, no blood. Work up in the ED was most consistent with community acquired pneumonia by imaging. He was negative for PE. He was started on azithromycin and ceftriaxone and admitted for further management. He continued to be febrile, blood cultures repeated and antibiotics broadened to cover for aspiration based on his history. He had no respiratory distress and no oxygen requirements. After his fever broke he was feeling much improved. he remained hemodynamically stable with no c/o. he was ready for discharge to home. he will complete 5 days of augmentin and doxycycline. discharged to home with no services. discussed with DR Madera Hartland Meds and New Rx's Prescriptions: New amoxicillin-pot clavulanate 875-125 mg tablet 1 tab PO BID Qty: 10 0RF doxycycline hyclate 100 mg capsule 100 mg PO BID Qty: 10 0RF guaifenesin [Mucinex] 600 mg tablet extended release 12hr 600 mg PO BID Qty: 10 0RF Continued lansoprazole 30 MG capsule,delayed release(DR/EC) 30 mg PO DAILY vitamin E 1,000 UNIT capsule 1 cap PO DAILY Centrum Silver 1 EACH tablet 1 tab PO DAILY Discharge Instructions Instructions: Pneumonia (DC) Stand Alone Forms: Nursing Discharge Form Referrals: Kolton Stern DO [OSTEOPATHIC DOCTOR] - 12/26/22 10:00 am Activity:: Activity as Tolerated Equipment/Supplies:: No Equipment Needed Diet:: As Tolerated Discharge Orders Discharge Orders: Discharge Order (Routine); Ordered 12/17/22 Ordered By: Veronica Huang Discharge Data Discharge Date/Time-TO BE ENTERED AT DEPARTURE: 12/17/22 13:14 DS: Summary Time Spent with Patient providing and/or coordinating discharge services: Less than 30 minutes Status at Discharge Functional status at discharge: independent ambulation Overall status at discharge: patient is progressing back to baseline Mental Status: mental status grossly normal Speech and Movement: speech and movement normal Mood: congruent mood Affect: normal affect Exam Const General: cooperative, comfortable and no acute distress Nutritional Appearance: thin Orientation: alert, awake and oriented x3 HENMT Head: normal to inspection and normocephalic Mouth: oral mucosae normal Resp Effort & Inspection: normal respiratory effort Auscultation: clear to auscultation bilaterally, no rales, no rhonchi and no wheezes Cardio Rate: regular rate Rhythm: regular rhythm Heart Sounds: no murmurs GI Inspection: normal to inspection Palpation: soft Auscultation: normal bowel sounds Skin General skin exam: no rashes or lesions noted Neuro General: patient alert, patient awake, patient oriented x3 and moves all extremities Extrem General: normal to inspection, full ROM and no pedal edema Psych Appearance: grossly normal Mental Status: mental status grossly normal Speech and Movement: speech and movement normal Mood: congruent mood Affect: normal affect DS: Data Vitals/I&O Vitals and I&O: Vital Signs Temperature 37.5 C 12/17/22 07:38 Temperature Source Tympanic 12/17/22 07:38 Pulse 83 12/17/22 07:38 Pulse Rhythm Regular 12/17/22 08:38 Pulse 98 H 12/16/22 06:01 Respiratory Rate 20 12/17/22 07:38 Respiratory Effort Normal, Non-Labored 12/17/22 08:38 Respiratory Depth Normal 12/17/22 08:38 Respiratory Pattern Normal 12/17/22 08:38 Blood Pressure 135/70 12/17/22 07:38 Blood Pressure Mean 85 12/16/22 06:00 Blood Pressure Position Supine 12/16/22 04:18 Pulse Oximetry 92 12/17/22 07:38 Oxygen Delivery Method Room Air 12/17/22 07:38 Oxygen Flow Rate 0 12/17/22 07:38 Pain Level 0 12/17/22 08:38 Comment Pt. denies pain at this time. 12/17/22 08:38 Intake & Output 12/16/22 12/16/22 12/17/22 11:59 23:59 11:59 Intake Total 1300 / 1400 100 / 1400 560 / 560 Output Total 300 / 850 550 / 850 600 / 600 Balance 1000 / 550 -450 / 550 -40 / -40 Weight 61.518 kg 60.498 kg Intake: IV 1300 / 1400 100 / 1400 200 / 200 Oral 360 / 360 Output: Urine 300 / 850 550 / 850 600 / 600 Other: Urine Color Yellow Straw Urine Appearance Clear Clear Clear Urine Odor Normal Comment Pt voiding independently Voiding Methods Toilet Data Completed and Pending Labs on day of discharge: Labs from last 24 hours 12/17/22 12/17/22 12/16/22 09:47 09:47 16:00 WBC 17.10 H RBC 3.00 L Hgb 10.1 L D Hct 28.6 L MCV 95 MCH 33.7 H MCHC 35.3 RDW 13.8 Plt Count 165 MPV 9.8 Immature Gran % 1.3 Neutrophils % 88.1 Lymphocytes % 5.1 Monocytes % 5.1 Eosinophils % 0.2 Basophils % 0.2 Nucleated RBC % 0.0 Absolute Neutrophils 15.07 H Absolute Lymphocytes 0.87 L Absolute Monocytes 0.87 H Absolute Eosinophils 0.03 Absolute Basophils 0.03 Sodium 142 Potassium 3.5 Chloride 107 Carbon Dioxide 25.8 Anion Gap 9.2 BUN 19 H Creatinine 1.2 Est GFR (CKD-EPI 2020) 60.00 Glucose 129 H Calcium 8.4 L Troponin I B. divergens/MO-1 PCR Pending Babesia duncani (PCR) Pending Babesia microti DNA PCR Pending Lyme Disease Antibody Pending E.chaffeensis DNA (PCR) Pending E.ewingii/canis DNA PCR Pending E.muris eauclairensis (PCR) Pending A. phagocytophilum (PCR) Pending Blood B. miyamotoi (PCR) Pending 12/16/22 11:10 WBC RBC Hgb Hct MCV MCH MCHC RDW Plt Count MPV Immature Gran % Neutrophils % Lymphocytes % Monocytes % Eosinophils % Basophils % Nucleated RBC % Absolute Neutrophils Absolute Lymphocytes Absolute Monocytes Absolute Eosinophils Absolute Basophils Sodium Potassium Chloride Carbon Dioxide Anion Gap BUN Creatinine Est GFR (CKD-EPI 2020) Glucose Calcium Troponin I < 50 B. divergens/MO-1 PCR Babesia duncani (PCR) Babesia microti DNA PCR Lyme Disease Antibody E.chaffeensis DNA (PCR) E.ewingii/canis DNA PCR E.muris eauclairensis (PCR) A. phagocytophilum (PCR) Blood B. miyamotoi (PCR) 12/16/22 16:12 Blood Blood Culture - Pending 12/16/22 16:00 Blood Blood Culture - Pending Preliminary micro results at discharge 12/16/22 12:33 Sputum Culture - Preliminary Sputum - Expectorated Normal Audrey 12/16/22 04:45 Blood Culture - Preliminary Blood NO GROWTH 24 HOURS 12/16/22 04:29 Blood Culture - Preliminary Blood NO GROWTH 24 HOURS 12/16/22 16:12 Blood Culture - Pending Blood 12/16/22 16:00 Blood Culture - Pending Blood PFSH All Active Problems (Updated 12/18/22 @ 00:01 by [employer]) Abnormal EKG (Acute) GERD (gastroesophageal reflux disease) (Chronic) Community acquired pneumonia (Acute) Medical History (Updated 12/18/22 @ 00:01 by [employer]) Chronic obstructive pulmonary disease Mild, on PFTs in 2019. Never had clinical disease. Surgical History (Updated 12/16/22 @ 10:31 by Emir Doe) S/P appendectomy S/P hernia repair Social History (Updated 12/16/22 @ 10:33 by Emir Doe) Smoking/Tobacco Use Status: Former Tobacco Use Smoking risk assessment performed?: Yes Alcohol Intake: current Alcohol Intake frequency: a few times a week Counseling given: Yes Counseling provided: provider counseling and reduce to 2 or less/day Drug use: Never Substance use type: does not use Do you feel safe at home: Yes Do you feel safe in your relationship?: Yes Additional Social history: Lives with in [place] in winter, [place] in the summer. 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 Time Spent with Patient Time Spent with Patient: <45 minutes Time was spent: preparing to see the patient(eg.review tests), obtaining and/or reviewing separately otained hiistory, ordering medications,tests, procedures, indepentently interpreting results and counseling the patient
--- NOTE | 2022-12-17 14:41 | CMDISCH_ITS ---
- If Service Date Differs Date of service: 12/17/22 Time of Service: 14:41 LACE Index Scoring Tool - Questions: Length of Stay (in days): 1 Acuity (Admit via E.D.?): Yes Comorbidities: Chronic Pulmonary Disease E.D. Visits: 1 - Answers: Total Score: 7 Risk of Readmission: Low Risk Care Management Discharge Reason for Hospitalization: community acquired pneumonia Discharge Plan: Willard returned home today with no new services. His drove him home via private vehicle. He will follow up with [facility]- the legal contracts specialist provider on the day of his admission, on 12/26/22 at 10:30am, coordinated by CM, as well as his discharge plan of care. Patient/Family Education Needs: Review discharge instructions and limitations, discussion of self care needs including ask me three.
[2022-12-19 10:42] LABS: Lyme Ab w Rflx to Lyme Confirm Negative (Negative)
[2022-12-21 16:41] LABS: Anaplasma phagocytophilum Negative (Negative); B. miyamotoi PCR Negative (Negative); Babesia divergens/MO-1 Negative (Negative); Babesia duncani Negative (Negative); Babesia microti Negative (Negative); Ehrlichia chaffeensis Negative (Negative); Ehrlichia ewingii/canis Negative (Negative); Ehrlichia muris eauclairensis Negative (Negative)
== END 2022-12-17 13:14 | disposition home or self-care (01) | DRG 195 ==
LOC: ER 06:54 → MS 06:56
PROVIDERS: Nurse Practitioner Acute Care; Admitting Provider Family Medicine; Emergency Provider Student in an Organized Health Care Education/Training Program; Visit Provider Family Medicine
DX: J18.9 Pneumonia, unspecified organism (principal); R94.31 Abnormal electrocardiogram [ECG] [EKG]; K21.9 Gastro-esophageal reflux disease without esophagitis; Z87.891 Personal history of nicotine dependence
CPT/HCPCS: 36415; 71275; 74177; 80048; 80053; 82805; 84145; 87040; 87449; 87637; 87798; 93005; 93308; 96361; 96365; 96368; 99285; J1650; 81003; 83605; 84443; 84484; 85025; 86618; 87070; 87205; 93010; 94667; 99238; J0456; J3490

== ENCOUNTER 2022-12-18 20:22 | Inpatient (IN) | payer MEDICARE, OTHER, SELFPAY ==
[2022-12-18 20:27] VITALS: BP 156/68; PULSE 97; RESP 28; TEMP 36.8; O2SAT 92
--- NOTE | 2022-12-18 20:45 | DI.RAD_ITS ---
Exam(s) XR CHEST 2V PA LATERAL EXAM: XR CHEST 2V PA LATERAL CLINICAL HISTORY: cough, sob, r/o acute disease TECHNIQUE: 2D digital imaging was performed of the chest. Two images were obtained. PA and lateral views were obtained. COMPARISON: CR CHEST 2 VIEWS PA,LAT from 02/27/[address] CHEST PE ABD PELVIS W from 12/16/2022 FINDINGS: MEDIASTINUM: Normal. There is a hiatal hernia present. HEART: Normal. PULMONARY VASCULATURE: Normal. LUNGS: There are infiltrates seen in the right upper and right lower lobes. There is also an infiltr ate seen in the left lower lobe. PLEURAL SPACE: No pleural effusion or pneumothorax. BONE:Within normal limits for the patient's age. OTHER FINDINGS:Normal. IMPRESSION: Bilateral pneumonia. DATA REPOSITORY: RADIATION DOSE DELIVERED:
[2022-12-18 21:39] LABS: Lactate 1.2 mmol/L (0.6-1.4)
[2022-12-18 21:40] LABS: Abs Immature Grans 0.18 10^3/uL (0.0-0.06); Basophils % 0.3; Eosinophils % 0.5; HCT 29.5 % (40.0-50.0); HGB 10.5 g/dL (13.5-17.5); Immature Grans % 1.2; Lymphocytes % 6.3; MCH 33.5 pg (27.0-33.0); MCHC 35.6 % (32.0-36.0); MCV 94 fL (80-95); MPV 9.3 fL (8.0-11.0); Monocytes % 7.6; Neutrophils % 84.1; Platelet Count 178 10^3/uL (130-400); RBC 3.13 10^6/uL (4.36-5.78); RDW 13.3 % (11.8-14.1); RDW-SD 46.3 fL; WBC 15.04 10^3/uL (4.4-10.8)
[2022-12-18 21:43] LABS: Absolute Basophil Count 0.05 10^3/uL (0.0-0.2); Absolute Eosinophil Count 0.08 10^3/uL (0.0-0.7); Absolute Lymphocyte Count 0.95 10^3/uL (1.2-3.4); Absolute Monocyte Count 1.14 10^3/uL (0.1-0.8); Absolute Neutrophil Count 12.65 10^3/uL (1.2-6.7)
--- NOTE | 2022-12-18 21:53 | ED.GENADUL_ITS ---
Discharge Plan Disposition Patient Disposition: Admit to [facility] Condition: Stable Discharge Details Clinical Impression: Pneumonia, Hypoxia, Fever Primary Care Provider: MarcellaLocal ED Provider: Fina Torres Home Meds and New Rx's Prescriptions: No Action lansoprazole 30 MG capsule,delayed release(DR/EC) 30 mg PO DAILY vitamin E 1,000 UNIT capsule 1 cap PO DAILY Centrum Silver 1 EACH tablet 1 tab PO DAILY amoxicillin-pot clavulanate 875-125 mg tablet 1 tab PO BID Qty: 10 0RF doxycycline hyclate 100 mg capsule 100 mg PO BID Qty: 10 0RF guaifenesin [Mucinex] 600 mg tablet extended release 12hr 600 mg PO BID Qty: 10 0RF Medical Decision Making 2129 -- 82-year-old male with a history of COPD not on home oxygen, former remote smoker, GERD who was admitted here for pneumonia and discharged yesterday on doxycycline and augmentin presents with return of fevers now with worsening shortness of breath. Cough with brown sputum production. Still has diarrhea but vomiting has resolved. Oral temp on arrival 98.3. Rectal temp 100.6. Oxygen saturation 88% on room air. He does have tachypnea and is frequently coughing. He has crackles in the bases bilaterally. No lower extremity edema. He had a CT chest abdomen pelvis 2 days ago which was negative for PE. Consider worsening pneumonia, influenza, COVID, RSV. Will obtain screening labs, chest x-ray, FLUVID and give DuoNeb, Solu-Medrol, fluid bolus, IV Tylenol and reassess. 2319 --Labs and imaging reviewed. White blood cell count 15. Was 17 yesterday. Lactate normal at 1.2. Potassium 3.2 and magnesium 1.5, will replete. Troponin negative. BNP 1399. Procalcitonin 3.9, was 0.92 days ago. FLUVID negative. Chest x-ray notes right upper lobe pneumonia and possible developing left lower lobe pneumonia. CT chest abdomen and pelvis from 2 days ago noted right upper and lower lobe infiltrates at that time. Patient reassessed and he states that shortness of breath is not much improved. He was placed on room air and oxygen saturation 91%. His breath sounds have improved but still with crackles in the bases bilaterally. As patient has been feeling increased weakness, uptrending procalcitonin and still with fevers, will admit for IV antibiotics, IV fluids and continued monitoring. Case discussed with hospitalist who accepts patient for admission. Medical Records Medical records reviewed: Yes I reviewed the patient's medical records. Imaging Data Radiologic Study: Radiologist's impression: XR Chest Exam date and time: 12/18/2022 9:57 PM Age: 82 years old Clinical indication: Cough and shortness of breath and other: R/O acute disease TECHNIQUE: Imaging protocol: Radiologic exam of the chest. Views: 2 views. COMPARISON: CT CHEST PE ABD PELVIS W 12/16/2022 5:34 AM FINDINGS: Lungs: There is moderate consolidation in the right upper lobe and consolidative atelectasis in the left lower lobe. Pleural spaces: Unremarkable. No pleural effusion. No pneumothorax. Heart/Mediastinum: There is a small hiatal hernia. Bones/joints: Unremarkable. IMPRESSION: Right upper lobe pneumonia with a possible left lower lobe infiltrate Lab Data Lab results reviewed: Yes I reviewed the patient's lab results. Labs: 12/18/22 23:50 Blood Blood Culture - Pending 12/18/22 23:30 Blood Blood Culture - Pending Laboratory Tests Range/Units 12/18/22 12/18/22 12/18/22 21:34 21:34 21:34 WBC (4.4-10.8) 10^3/uL 15.04 H RBC (4.36-5.78) 10^6/uL 3.13 L Hgb (13.5-17.5) g/dL 10.5 L Hct (40.0-50.0) % 29.5 L MCV (80-95) fL 94 MCH (27.0-33.0) pg 33.5 H MCHC (32.0-36.0) % 35.6 RDW (11.8-14.1) % 13.3 Plt Count (130-400) 10^3/uL 178 MPV (8.0-11.0) fL 9.3 Immature Gran % 1.2 Neutrophils % 84.1 Lymphocytes % 6.3 Monocytes % 7.6 Eosinophils % 0.5 Basophils % 0.3 Nucleated RBC % (0.0-0.3) % 0.0 Absolute Neutrophils (1.2-6.7) 10^3/uL 12.65 H Absolute Lymphocytes (1.2-3.4) 10^3/uL 0.95 L Absolute Monocytes (0.1-0.8) 10^3/uL 1.14 H Absolute Eosinophils (0.0-0.7) 10^3/uL 0.08 Absolute Basophils (0.0-0.2) 10^3/uL 0.05 VBG Lactate (0.6-1.4) mmol/L 1.2 Sodium (136-145) mmol/L 140 Potassium (3.5-5.1) mmol/L 3.2 L Chloride (98-107) mmol/L 107 Carbon Dioxide (21.0-32.0) mmol/L 25.5 Anion Gap (3-11) mmol/L 7.5 BUN (7-18) mg/dL 11 Creatinine (0.70-1.30) mg/dL 1.1 Est GFR (CKD-EPI 2020) (mL/min/1.73m2) 66.61 Glucose (74-106) mg/dL 130 H Calcium (8.5-10.1) mg/dL 8.7 Magnesium (1.8-2.4) mg/dL 1.5 L Total Bilirubin (0.2-1.0) mg/dL 0.6 AST (15-37) U/L 31 ALT (16-63) U/L 23 Alkaline Phosphatase (46-116) U/L 87 Troponin I (<or=60) ng/L < 50 NT-Pro-B Natriuret Pep (<300) pg/mL Total Protein (6.4-8.2) g/dL 6.9 Albumin (3.4-5.0) g/dL 2.8 L Procalcitonin ng/mL 3.9 COVID-19 Source SARS-CoV-2 (PCR) (Negative) Influenza Type A (PCR) (Negative) Influenza Type B (PCR) (Negative) RSV (PCR) (Negative) Range/Units 12/18/22 12/18/22 21:34 23:00 WBC (4.4-10.8) 10^3/uL RBC (4.36-5.78) 10^6/uL Hgb (13.5-17.5) g/dL Hct (40.0-50.0) % MCV (80-95) fL MCH (27.0-33.0) pg MCHC (32.0-36.0) % RDW (11.8-14.1) % Plt Count (130-400) 10^3/uL MPV (8.0-11.0) fL Immature Gran % Neutrophils % Lymphocytes % Monocytes % Eosinophils % Basophils % Nucleated RBC % (0.0-0.3) % Absolute Neutrophils (1.2-6.7) 10^3/uL Absolute Lymphocytes (1.2-3.4) 10^3/uL Absolute Monocytes (0.1-0.8) 10^3/uL Absolute Eosinophils (0.0-0.7) 10^3/uL Absolute Basophils (0.0-0.2) 10^3/uL VBG Lactate (0.6-1.4) mmol/L Sodium (136-145) mmol/L Potassium (3.5-5.1) mmol/L Chloride (98-107) mmol/L Carbon Dioxide (21.0-32.0) mmol/L Anion Gap (3-11) mmol/L BUN (7-18) mg/dL Creatinine (0.70-1.30) mg/dL Est GFR (CKD-EPI 2020) (mL/min/1.73m2) Glucose (74-106) mg/dL Calcium (8.5-10.1) mg/dL Magnesium (1.8-2.4) mg/dL Total Bilirubin (0.2-1.0) mg/dL AST (15-37) U/L ALT (16-63) U/L Alkaline Phosphatase (46-116) U/L Troponin I (<or=60) ng/L NT-Pro-B Natriuret Pep (<300) pg/mL 1399 H Total Protein (6.4-8.2) g/dL Albumin (3.4-5.0) g/dL Procalcitonin ng/mL COVID-19 Source Nasopharynx SARS-CoV-2 (PCR) (Negative) Negative Influenza Type A (PCR) (Negative) Negative Influenza Type B (PCR) (Negative) Negative RSV (PCR) (Negative) Negative ECG Data Attestation: I personally reviewed and interpreted this ECG (s) as follows: Interpretation: rate of 92, sinus, low voltage aVF, PVCs, no STEMI. HPI General Mode of arrival: ambulatory . Date/Time Provider Initiated Documentation: 12/18/22 20:31 . Limitations to Documentation: no limitations . Information obtained by: patient . HPI Narrative: Patient is an 82-year-old man with a history of COPD and GERD who was recently admitted for pneumonia and discharged home yesterday presents with now worsening shortness of breath and return of fevers. Patient was treated with IV Zithromax and Rocephin while admitted with negative blood cultures and was sent home on doxycycline and Augmentin. Admits to Tmax temperature of 103 yesterday. Last dose of Tylenol almost 4 hours ago. He states his appetite has not improved over the past few days. He states he had been having vomiting and diarrhea prior to admission and states the vomiting has now improved but he is still having loose stool. He states he is coughing up brown sputum but denies any hemoptysis. He is not on home oxygen. He has been fully vaccinated for COVID. Related Data Home Medications Medication Instructions Recorded Confirmed lansoprazole 30 mg capsule,delayed 30 mg PO DAILY 01/12/13 12/18/22 release hffhdqfz-zrz-riken acid 0.4 1 tab PO DAILY 04/09/15 12/18/22 mg-lycopene 300 mcg-lutein 250 mcg tablet (Centrum Silver) vitamin E 670 mg (1,000 unit) 1 cap PO DAILY 04/09/15 12/18/22 capsule amoxicillin 875 mg-potassium 1 tab PO BID #10 tabs 12/17/22 12/18/22 clavulanate 125 mg tablet doxycycline hyclate 100 mg capsule 100 mg PO BID #10 caps 12/17/22 12/18/22 guaifenesin 600 mg tablet, 600 mg PO BID #10 tabs 12/17/22 12/18/22 extended release 12 hr (Mucinex) Previous Rx's Medication Instructions Recorded amoxicillin 875 mg-potassium 1 tab PO BID #10 tabs 12/17/22 clavulanate 125 mg tablet doxycycline hyclate 100 mg capsule 100 mg PO BID #10 caps 12/17/22 guaifenesin 600 mg tablet, 600 mg PO BID #10 tabs 12/17/22 extended release 12 hr (Mucinex) Allergies Allergy/AdvReac Type Severity Reaction Status Date / Time No Known Allergies Allergy Unverified 02/27/16 10:56 General Stated Complaint: RespSymp JALYN: 3 Review of Systems All systems reviewed & are unremarkable except as noted in HPI and below Constitutional Constitutional: Reports as per HPI, Denies chills, Denies fever(s), Reports malaise, Reports poor appetite and Reports weakness Eyes Eyes: Denies blurry vision ENT Ears, Nose, Mouth, and Throat: Denies dizziness, Denies sore throat and Denies throat swelling Cardiovascular Cardiovascular: Denies chest pain and Reports dyspnea Respiratory Respiratory: Reports cough and Reports dyspnea Gastrointestinal Gastrointestinal: Denies abdominal pain, Denies diarrhea and Denies vomiting Genitourinary Genitourinary: Denies hematuria and Denies dysuria Musculoskeletal Musculoskeletal: Denies back pain and Denies numbness Integumentary/Breasts Skin/Breast: Denies lesions and Denies rash Neurologic Neurologic: Denies dizziness, Denies localized weakness, Denies numbness and Reports weakness Allergic/Immunologic Allergic/Immunologic: Denies throat swelling PFSH All Active Problems Pneumonia (Acute) Hypoxia (Acute) Fever (Acute) Abnormal EKG (Acute) Community acquired pneumonia (Acute) Medical History Chronic obstructive pulmonary disease Mild, on PFTs in 2019. Never had clinical disease. GERD (gastroesophageal reflux disease) Surgical History S/P appendectomy S/P hernia repair Social History Smoking/Tobacco Use Status: Former Tobacco Use Smoking risk assessment performed?: Yes Alcohol Intake: current Alcohol Intake frequency: a few times a week Counseling given: Yes Counseling provided: provider counseling and reduce to 2 or less/day Drug use: Never Substance use type: does not use Do you feel safe at home: Yes Do you feel safe in your relationship?: Yes Additional Social history: Lives with in [place] in winter, [place] in the summer. 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 Exam Const General: cooperative, healthy appearing and no acute distress HENMT Head: normal to inspection Face and sinus: normal facial exam Eyes General: appearance normal, both eyes and all related structures Pupils: PERRL EOM: EOM intact bilaterally Neck Neck: normal visual inspection and No submandibular swelling Lymphatic: no lymphadenopathy noted Chest Chest: normal inspection of the chest and no tenderness Resp Effort & Inspection: normal respiratory effort and able to speak in complete sentences Auscultation: crackles bilaterally at the base and rhonchi lower bilaterally Cardio Rate: regular rate Rhythm: regular rhythm GI Inspection: normal to inspection Palpation: soft, not firm, not rigid and nontender Auscultation: hypoactive bowel sounds Skin General skin exam: no rashes or lesions noted Neuro General: patient alert, patient awake and patient oriented x3 Cognition: normal cognition Speech: speech normal Motor: muscle tone normal throughout Sensory Exam: no sensory deficits noted Extrem General: normal to inspection, full ROM and no edema Psych Appearance: grossly normal Mental Status: mental status grossly normal Speech and Movement: speech and movement normal Affect: normal affect Course Vital Signs Vital signs: Vital Signs Temperature 98.3 F 12/18/22 20:27 Pulse 97 H 12/18/22 20:27 Respiratory Rate 28 H 12/18/22 20:27 Blood Pressure 156/68 H 12/18/22 20:27 Pulse Oximetry 92 12/18/22 20:27 Temperature 98.3 F 12/18/22 20:27 Temperature Source Oral 12/18/22 20:27 Pulse 97 H 12/18/22 20:27 Respiratory Rate 28 H 12/18/22 20:27 Respiratory Effort Short of Breath 12/18/22 20:44 Respiratory Depth Normal 12/18/22 20:44 Blood Pressure 156/68 H 12/18/22 20:27 Blood Pressure Position Sitting 12/18/22 20:27 Pulse Oximetry 92 12/18/22 20:27 Oxygen Delivery Method Room Air 12/18/22 20:27 Oxygen Flow Rate 0 12/18/22 20:27 Lab/Test Results Lab/Test Results: 12/18/22 21:52 Blood Blood Culture - Pending 12/18/22 21:52 Blood Blood Culture - Pending Laboratory Tests Range/Units 12/18/22 12/18/22 21:34 21:34 WBC (4.4-10.8) 10^3/uL 15.04 H RBC (4.36-5.78) 10^6/uL 3.13 L Hgb (13.5-17.5) g/dL 10.5 L Hct (40.0-50.0) % 29.5 L MCV (80-95) fL 94 MCH (27.0-33.0) pg 33.5 H MCHC (32.0-36.0) % 35.6 RDW (11.8-14.1) % 13.3 Plt Count (130-400) 10^3/uL 178 MPV (8.0-11.0) fL 9.3 Immature Gran % 1.2 Neutrophils % 84.1 Lymphocytes % 6.3 Monocytes % 7.6 Eosinophils % 0.5 Basophils % 0.3 Nucleated RBC % (0.0-0.3) % 0.0 Absolute Neutrophils (1.2-6.7) 10^3/uL 12.65 H Absolute Lymphocytes (1.2-3.4) 10^3/uL 0.95 L Absolute Monocytes (0.1-0.8) 10^3/uL 1.14 H Absolute Eosinophils (0.0-0.7) 10^3/uL 0.08 Absolute Basophils (0.0-0.2) 10^3/uL 0.05 VBG Lactate (0.6-1.4) mmol/L 1.2 PAWSS Have you Been Recently Intoxicated or Drunk Within the Last 30 days?: No Have you Ever Experienced Previous Episodes of Alcohol Withdrawal?: No Have you ever Experienced Withdrawal Seizures?: No Have you ever Experienced Delirium Tremens(DT)s?: No Have you ever undergone Alcohol Rehabilitation Treatment (i.e, inpt ot outpatient treatment programs)?: No Have you ever Experienced Blackouts?: No Have you ever Combined Alcohol with other Downers within the last 90 days?: No Have you ever Combined Alcohol with any other Substance of Abuse during the last 90 days?: No Result: 0
[2022-12-18 21:55] VITALS: TEMP 38.1
--- NOTE | 2022-12-18 22:00 | RT.EKG_ITS ---
APPROVED REPORT Exam: Resting ECG Reason for Exam: sob Patient Location: E HR:92 bpm ECG Measurements Heart Rate 92 AXIS FL 163 P 46 QRSd 87 QRS 12 QT 334 T 166 QTc 414 Conclusion Sinus rhythm...normal P axis, V-rate 60- 99 Ventricular premature complex...V complex w/ short R-R interval Nonspecific repol abnormality, diffuse leads...ST dep, T flat/neg, ant/lat/inf. Sinus. Low voltage aVF. PVCs. Less than 1mm ST depression in anterolateral leads. No STEMI. I have reviewed and interpreted ECG and agree with software generated interpretation.
[2022-12-18 22:02] LABS: ALT 23 U/L (16-63); AST 31 U/L (15-37); Albumin 2.8 g/dL (3.4-5.0); Alkaline Phosphatase 87 U/L (46-116); Anion Gap 7.5 mmol/L (3-11); BUN 11 mg/dL (7-18); Bilirubin, Total 0.6 mg/dL (0.2-1.0); CO2 25.5 mmol/L (21.0-32.0); CREATININE 1.1 mg/dL (0.70-1.30); Calcium 8.7 mg/dL (8.5-10.1); Chloride 107 mmol/L (98-107); Estimated GFR 66.61 (mL/min/1.73m2); Glucose 130 mg/dL (74-106); Magnesium 1.5 mg/dL (1.8-2.4); Potassium 3.2 mmol/L (3.5-5.1); Sodium 140 mmol/L (136-145); Total Protein 6.9 g/dL (6.4-8.2); Troponin I < 50 ng/L (<or=60)
[2022-12-18] MEDS: methylPREDNISolone SUCC 125 MG VIAL IVP (22:15)
[2022-12-18] MEDS: Albuterol/Ipratropium 3 ML UPD VIAL UPD (22:15)
[2022-12-18] MEDS: ACETAMINOPHEN 1,000 MG/100 ML BTL 400 MG IVPB (22:20)
[2022-12-18 22:23] LABS: Procalcitonin 3.9 ng/mL
[2022-12-18] MEDS: Normal Saline 250 ML IV (22:24)
--- NOTE | 2022-12-18 22:26 | DI.VRAD_ITS ---
PROCEDURE INFORMATION: Exam: XR Chest Exam date and time: 12/18/2022 9:57 PM Age: 82 years old Clinical indication: Cough and shortness of breath and other: R/O acute disease TECHNIQUE: Imaging protocol: Radiologic exam of the chest. Views: 2 views. COMPARISON: CT CHEST PE ABD PELVIS W 12/16/2022 5:34 AM FINDINGS: Lungs: There is moderate consolidation in the right upper lobe and consolidative atelectasis in the left lower lobe. Pleural spaces: Unremarkable. No pleural effusion. No pneumothorax. Heart/Mediastinum: There is a small hiatal hernia. Bones/joints: Unremarkable. IMPRESSION: Right upper lobe pneumonia with a possible left lower lobe infiltrate Dictated and Authenticated by: Jameson Vargas MD. Ordering:JANINE Harden MD
[2022-12-18 22:27] LABS: NT-proBNP 1399 pg/mL (<300)
[2022-12-18] MEDS: Potassium Chloride 20 MEQ TABCR 40 MEQ PO (22:42)
[2022-12-18] MEDS: MAGNESIUM SULFATE 2 GM/50 ML BAG IVPB (22:43)
--- NOTE | 2022-12-18 23:47 | W.PM.HP.N ---
Date of service: 12/18/22 Time of Service: 23:48 Assessment and Plan Assessment and plan (1) Pneumonia: Status: Acute Assessment and plan: I think this is essentially a case of premature transition to oral antibiotics, not a failure of regimen, and I think he needs probably another day or two of IV. There is probably also an element of COPD as his sats improved here following steroids. Will resume the Rocephin and Zithro with which he initially did well, and continue steroids and updrafts. Reviewed ADs, requests Full Code. 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 By the next day (yesterday) was feeling improved and was sent home on Augmentin and Doxy. Returns tonight reporting continued fever, malaise. In ER noted to have fever to 38.1, initial sats high 80s, white count 15 (down from 17) and CXR showing RUL (and possible LLL) pneumonia. Patient given steroids with increase sats to low-mid 90s on RA. Lactate 1.2, Procal 3.9. Due to persistent fever and ongoing weakness I was asked to evaluate for admission. At present patient states he feels improved but still quite weak and is very anxious about returning home. Denies CP or SOB at this time. Review of Systems Narrative: per HPI PFSH All Active Problems Pneumonia (Acute) Hypoxia (Acute) Fever (Acute) Abnormal EKG (Acute) Community acquired pneumonia (Acute) Medical History Chronic obstructive pulmonary disease Mild, on PFTs in 2019. Never had clinical disease. GERD (gastroesophageal reflux disease) Surgical History S/P appendectomy S/P hernia repair Social History Smoking/Tobacco Use Status: Former Tobacco Use Smoking risk assessment performed?: Yes Alcohol Intake: current Alcohol Intake frequency: a few times a week Counseling given: Yes Counseling provided: provider counseling and reduce to 2 or less/day Drug use: Never Substance use type: does not use Do you feel safe at home: Yes Do you feel safe in your relationship?: Yes Additional Social history: Lives with in [place] in winter, [place] in the summer. 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 Meds Allergies and Home Medications Allergies Allergy/AdvReac Type Severity Reaction Status Date / Time No Known Allergies Allergy Unverified 02/27/16 10:56 Home Medications Medication Instructions Recorded Confirmed Type lansoprazole 30 mg capsule,delayed 30 mg PO DAILY 01/12/13 12/18/22 History release bycdluer-mnr-eqvhb acid 0.4 1 tab PO DAILY 04/09/15 12/18/22 History mg-lycopene 300 mcg-lutein 250 mcg tablet (Centrum Silver) vitamin E 670 mg (1,000 unit) 1 cap PO DAILY 04/09/15 12/18/22 History capsule amoxicillin 875 mg-potassium 1 tab PO BID #10 tabs 12/17/22 12/18/22 Rx clavulanate 125 mg tablet doxycycline hyclate 100 mg capsule 100 mg PO BID #10 caps 12/17/22 12/18/22 Rx guaifenesin 600 mg tablet, 600 mg PO BID #10 tabs 12/17/22 12/18/22 Rx extended release 12 hr (Mucinex) Exam Narrative Exam Narrative: 156/68, 97, 38.1, 28, 92% RA. HEENT atraumatic; neck supple; lungs rales right base; heart RRR; abdomen soft and NT; extremities w/o edema; neuro Ox3, lucid, moves all 4s Results Labs 12/18/22 21:34 12/18/22 21:34 Labs: Laboratory Results - last 24 hr 12/18/22 12/18/22 12/18/22 21:34 21:34 21:34 WBC 15.04 H RBC 3.13 L Hgb 10.5 L Hct 29.5 L MCV 94 MCH 33.5 H MCHC 35.6 RDW 13.3 Plt Count 178 MPV 9.3 Immature Gran % 1.2 Neutrophils % 84.1 Lymphocytes % 6.3 Monocytes % 7.6 Eosinophils % 0.5 Basophils % 0.3 Nucleated RBC % 0.0 Absolute Neutrophils 12.65 H Absolute Lymphocytes 0.95 L Absolute Monocytes 1.14 H Absolute Eosinophils 0.08 Absolute Basophils 0.05 VBG Lactate 1.2 Sodium 140 Potassium 3.2 L Chloride 107 Carbon Dioxide 25.5 Anion Gap 7.5 BUN 11 Creatinine 1.1 Est GFR (CKD-EPI 2020) 66.61 Glucose 130 H Calcium 8.7 Magnesium 1.5 L Total Bilirubin 0.6 AST 31 ALT 23 Alkaline Phosphatase 87 Troponin I < 50 NT-Pro-B Natriuret Pep Total Protein 6.9 Albumin 2.8 L Procalcitonin 3.9 12/18/22 21:34 WBC RBC Hgb Hct MCV MCH MCHC RDW Plt Count MPV Immature Gran % Neutrophils % Lymphocytes % Monocytes % Eosinophils % Basophils % Nucleated RBC % Absolute Neutrophils Absolute Lymphocytes Absolute Monocytes Absolute Eosinophils Absolute Basophils VBG Lactate Sodium Potassium Chloride Carbon Dioxide Anion Gap BUN Creatinine Est GFR (CKD-EPI 2020) Glucose Calcium Magnesium Total Bilirubin AST ALT Alkaline Phosphatase Troponin I NT-Pro-B Natriuret Pep 1399 H Total Protein Albumin Procalcitonin Last Vital Signs Temp 38.1 C H 12/18/22 21:55 Pulse 97 H 12/18/22 20:27 Resp 28 H 12/18/22 20:27 BP 156/68 H 12/18/22 20:27 Pulse Ox 92 12/18/22 20:27 PAWSS Have you Been Recently Intoxicated or Drunk Within the Last 30 days?: No Have you Ever Experienced Previous Episodes of Alcohol Withdrawal?: No Have you ever Experienced Withdrawal Seizures?: No Have you ever Experienced Delirium Tremens(DT)s?: No Have you ever undergone Alcohol Rehabilitation Treatment (i.e, inpt ot outpatient treatment programs)?: No Have you ever Experienced Blackouts?: No Have you ever Combined Alcohol with other Downers within the last 90 days?: No Have you ever Combined Alcohol with any other Substance of Abuse during the last 90 days?: No Result: 0 Time Spent Time spent with Patient: 40-54 minutes Time was spent: preparing to see the patient(eg.review tests), obtaining and/or reviewing separately otained hiistory, ordering medications,tests, procedures and indepentently interpreting results
[2022-12-18 23:51] LABS: COVID-19 PCR Negative (Negative); Influenza A PCR Negative (Negative); Influenza B PCR Negative (Negative); RSV PCR Negative (Negative); Source Nasopharynx
[2022-12-18 23:59] VITALS: O2SAT 92
[2022-12-19] VITALS (32 sets, daily range): BP systolic 127–168; BP diastolic 61–100; PULSE 82–93; RESP 1–27; TEMP 36.3–37.1; O2SAT 89–97
[2022-12-19] MEDS: cefTRIAXone 1,000 MG in Normal Saline 50 ML 100 MG IVPB (00:48)
[2022-12-19] MEDS: AZITHROMYCIN 250 MG in Normal Saline 250 ML IVPB (03:30)
[2022-12-19] MEDS: methylPREDNISolone SUCC 40 MG VIAL IVP ×3 (05:48→20:13)
[2022-12-19] MEDS: Water,Injection,Sterile 10 ML VIAL ×2 (05:49→20:14)
[2022-12-19] MEDS: Albuterol/Ipratropium 3 ML UPD VIAL UPD ×3 (06:03→16:51)
[2022-12-19] MEDS: Lansoprazole 30 MG CAPCR PO (08:11)
--- NOTE | 2022-12-19 08:48 | NUR.NOTE ---
Nursing Note: Accessed chart to determine orders for EKG and to determine whether or not one needs to be cancelled.
--- NOTE | 2022-12-19 14:41 | PDOC.CMIN ---
- If Service Date Differs Date of service: 12/19/22 Time of Service: 15:05 Care Management Initial Assess REASON FOR HOSPITALIZATION:: Re-admit for Pneumonia PAST MEDICAL HISTORY/PAST SURGICAL HISTORY:: Medical History (Updated 12/16/22 @ 10:31 by Emir Doe). Chronic obstructive pulmonary disease. Mild, on PFTs in 2019. Never had clinical disease. Surgical History (Updated 12/16/22 @ 10:31 by Emir Doe). S/P appendectomy. S/P hernia repair PREVIOUS FUNCTIONAL STATUS/SOCIAL/FAMILY SUPPORTS:: Willard lives in [facility] with his S/O, Ruby for the summer. In the Winter, they live in [place]. He has supportive children, who live in [place]. 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 His primary care is located in [place]. He is independent at baseline. CURRENT FUNCTIONAL STATUS:: Willard was lying in bed, he described declining over the last hour, BP rising and more work of breathing. He was pleasant in interaction, at his bedside and spoke in length about his family's land in [place] and their home in [facility]. ADVANCE DIRECTIVES:: Not on file at [facility], will discuss with Willard, and offer forms if he does not have any filled out. Has patient been provided with info about the portal/API?: Yes Did the patient sign up for the portal?: No CODE STATUS:: Full Code INSURANCE COVERAGE / FINANCIAL ISSUES:: [facility]/ Supplement- [place] Non-Union Retiree [employer] PRIMARY CARE PHYSICIAN:: No local: ED F/U Dr. Stern on December 26 at 10:30am POTENTIAL DISCHARGE NEEDS:: Further evaluations, follow up appointments. PATIENT/FAMILY EDUCATION NEEDS:: Review discharge instructions, discuss Ask Me Three. ANTICIPATED BARRIERS TO DISCHARGE:: None identified. TRANSPORTATION:: Via private vehicle with . PLAN:: Anticipate Willard will return home when ready per MD. He will follow up with his PCP and plan of care as prescribed. He will transport via private vehicle with his . Readmission - Within the Past 30 Days Yes or No: Y - Date of First Admission Date of 1st Admission: 12/16/22 - Date of this Admission Date of Admission: 12/19/22 This admission was: Through ED - Office Visit Since 1st Admission Have you seen your PCP in the office since discharge?: No Date of PCP Appointment: Dr. Stern on December 26 at 10:30am Had an appointment Been Scheduled?: Yes Date of Scheduled Appointment: Dr. Stern on December 26 at 10:30am Describe barriers for scheduling or getting an appointment: ED follow up appointment - Assessment for Readmission Summary of readmission circumstances, based upon interviews: Dr. Stern on December 26 at 10:30am MD documentation: I think this is essentially a case of premature transition to oral antibiotics, not a failure of regimen, and I think he needs probably another day or two of IV. There is probably also an element of COPD as his sats improved here following steroids. Will resume the Rocephin and Zithro with which he initially did well, and continue steroids and updrafts.
[2022-12-19] MEDS: Normal Saline Flush 10 ML SYR IVP (15:09)
[2022-12-19] MEDS: Acetaminophen 325 MG TAB 650 MG PO ×2 (15:12→20:13)
--- NOTE | 2022-12-19 15:30 | W.PM.PROGNOT ---
Date of Service Date of service: 12/19/22 Time of Service: 15:30 Assessment and Plan Assessment and plan (1) Community acquired pneumonia: Status: Acute Assessment and plan: continue ceftriaxone and zithromycin day 4 of treatment. weaned off oxygen. placed on IV steroids on admission, will change to po burst continue i/s, acapella, (2) GERD (gastroesophageal reflux disease): Assessment and plan: Continue outpatient PPI. (3) DVT prophylaxis: Status: Acute Assessment and plan: LMWH (4) Discharge planning issues: Status: Acute Assessment and plan: will consult PT for discharge planning. discussed with DR Madera. Subjective Subjective Patient reports: no new complaints, tolerating liquids well, tolerating a regular diet, shortness of breath and afebrile Interval history since last seen: max temp overnight 36.3, oxygen has been weaned off. states he feels weak and deconditioned, but otherwise no c/o. Exam Const General: cooperative, comfortable and no acute distress Nutritional Appearance: thin Orientation: alert, awake and oriented x3 HENMT Head: normal to inspection and normocephalic Mouth: oral mucosae normal Resp Effort & Inspection: normal respiratory effort Auscultation: clear to auscultation bilaterally, no rales, no rhonchi and no wheezes Cardio Rate: regular rate Rhythm: regular rhythm Heart Sounds: no murmurs GI Inspection: normal to inspection Palpation: soft Auscultation: normal bowel sounds Skin General skin exam: no rashes or lesions noted Neuro General: patient alert, patient awake, patient oriented x3 and moves all extremities Extrem General: normal to inspection, full ROM and no pedal edema Psych Appearance: grossly normal Mental Status: mental status grossly normal Speech and Movement: speech and movement normal Mood: congruent mood Affect: normal affect Objective Last Vital Signs Temp 37.1 C 12/19/22 15:05 Pulse 90 12/19/22 11:05 Resp 20 12/19/22 11:05 BP 162/80 H 12/19/22 07:14 Pulse Ox 89 L 12/19/22 11:05 Laboratory Results - last 24 hr 12/18/22 12/18/22 12/18/22 21:34 21:34 21:34 WBC 15.04 H RBC 3.13 L Hgb 10.5 L Hct 29.5 L MCV 94 MCH 33.5 H MCHC 35.6 RDW 13.3 Plt Count 178 MPV 9.3 Immature Gran % 1.2 Neutrophils % 84.1 Lymphocytes % 6.3 Monocytes % 7.6 Eosinophils % 0.5 Basophils % 0.3 Nucleated RBC % 0.0 Absolute Neutrophils 12.65 H Absolute Lymphocytes 0.95 L Absolute Monocytes 1.14 H Absolute Eosinophils 0.08 Absolute Basophils 0.05 VBG Lactate 1.2 Sodium 140 Potassium 3.2 L Chloride 107 Carbon Dioxide 25.5 Anion Gap 7.5 BUN 11 Creatinine 1.1 Est GFR (CKD-EPI 2020) 66.61 Glucose 130 H Calcium 8.7 Magnesium 1.5 L Total Bilirubin 0.6 AST 31 ALT 23 Alkaline Phosphatase 87 Troponin I < 50 NT-Pro-B Natriuret Pep Total Protein 6.9 Albumin 2.8 L Procalcitonin 3.9 COVID-19 Source SARS-CoV-2 (PCR) Influenza Type A (PCR) Influenza Type B (PCR) RSV (PCR) 12/18/22 12/18/22 21:34 23:00 WBC RBC Hgb Hct MCV MCH MCHC RDW Plt Count MPV Immature Gran % Neutrophils % Lymphocytes % Monocytes % Eosinophils % Basophils % Nucleated RBC % Absolute Neutrophils Absolute Lymphocytes Absolute Monocytes Absolute Eosinophils Absolute Basophils VBG Lactate Sodium Potassium Chloride Carbon Dioxide Anion Gap BUN Creatinine Est GFR (CKD-EPI 2020) Glucose Calcium Magnesium Total Bilirubin AST ALT Alkaline Phosphatase Troponin I NT-Pro-B Natriuret Pep 1399 H Total Protein Albumin Procalcitonin COVID-19 Source Nasopharynx SARS-CoV-2 (PCR) Negative Influenza Type A (PCR) Negative Influenza Type B (PCR) Negative RSV (PCR) Negative PAWSS Have you Been Recently Intoxicated or Drunk Within the Last 30 days?: No Have you Ever Experienced Previous Episodes of Alcohol Withdrawal?: No Have you ever Experienced Withdrawal Seizures?: No Have you ever Experienced Delirium Tremens(DT)s?: No Have you ever undergone Alcohol Rehabilitation Treatment (i.e, inpt ot outpatient treatment programs)?: No Have you ever Experienced Blackouts?: No Have you ever Combined Alcohol with other Downers within the last 90 days?: No Have you ever Combined Alcohol with any other Substance of Abuse during the last 90 days?: No Result: 0 Time Spent with Patient Time Spent with Patient: 25-34 minutes Time was spent: preparing to see the patient(eg.review tests), obtaining and/or reviewing separately otained hiistory, ordering medications,tests, procedures, indepentently interpreting results and counseling the patient
--- NOTE | 2022-12-19 16:16 | PT.INIE ---
Date of service: 12/19/22 Time of Service: 15:45 PT Notes Visit Reasons: Pneumonia Physical Therapy Inpatient Initial Evaluation Date: 12/19/2022 Referring Doctor: Thaddeus Madera MD PT Orders: PT CONSULT: Extended Stay Weakness Precautions: Fall. Standard. Activity as tolerated. Patient Profile/Admitting Diagnosis: Benedict is an 82-year-old male who presented to the ED on 12/18/2022 due to fever, shortness of breath, cough, and diarrhea. Patient is admitted for management of community-acquired pneumonia, COPD exacerbation, and GERD. PMHX: All Active Problems? Pneumonia (Acute) Hypoxia (Acute) Fever (Acute) Abnormal EKG (Acute) Community acquired pneumonia (Acute) Medical History? Chronic obstructive pulmonary disease Mild, on PFTs in 2019.? Never had clinical disease.GERD (gastroesophageal reflux disease) Surgical History? S/P appendectomy S/P hernia repair Social History/Home Situation: Lives with in a private home with no stairs to enter. Independent with all aspects of ADLs prior to admission without any assistive device/adaptive equipment. Equipment Owned/DME: None Subjective: I am okay, It is just this fever and cough that are holding me back. Per Nurse Schafer, patient has become short of breath and needed oxygen supplementation. Spiked temperature again and suggested not doing too much for this session. Patient is agreeable to getting out of bed. Objective: General Observation: Supine in bed. Ruby was present throughout session. Oxygen supp via NC. IV access through R brachium. Mental Status: Alert and oriented as to person, place, time, and purpose. Able to pay attention, focus, and respond appropriately. Pain: Denies Vital Signs: BP in the 160s/100s mmHg as taken immediately before PT visit, Nurse Schafer aware ROM: Right Upper Extremity: Shoulder Flexion WFL. Shoulder abduction WFL. Elbow flexion WFL. Wrist flexion WFL. Functional opening and closing of hand WFL. Left Upper Extremity: Shoulder Flexion WFL. Shoulder abduction WFL. Elbow flexion WFL. Wrist flexion WFL. Functional opening and closing of hand WFL. Right Lower Extremity: Hip flexion WFL. Hip abduction WFL. Knee flexion WFL. Ankle dorsiflexion WFL. Ankle plantarflexion WFL. Left Lower Extremity: Hip flexion WFL. Hip abduction WFL. Knee flexion WFL. Ankle dorsiflexion WFL. Ankle plantarflexion WFL. Strength: Right Upper Extremity: Shoulder flexors 4/5. Shoulder abductors 4/5. Elbow flexors 5/5. Elbow extensors 5/5. Warehouse Checker strong. Left Upper Extremity: Shoulder flexors 4/5. Shoulder abductors 4/5. Elbow flexors 5/5. Elbow extensors 5/5. Warehouse Checker strong. Right Lower Extremity: Hip flexors 4/5. Hip abductors 4/5. Knee flexors 5/5. Knee extensors 4/5. Ankle dorsiflexors 4/5. Ankle plantarflexors 4/5. Left Lower Extremity: Hip flexors 4/5. Hip abductors 4/5. Knee flexors 5/5. Knee extensors 4/5. Ankle dorsiflexors 4/5. Ankle plantarflexors 4/5. Bed Mobility/Transfers: Supine to sit independent Sit to supine independent Sit to stand independent Stand to sit independent Bed to reclining chair stand by assist Gait: Instructed patient with level surface ambulation of 5 feet requiring stand by assist. Gait pattern unremarkable. Minimally short of breath with short distance ambulation however resolved with rest. Balance: Static Sitting: Normal Dynamic Sitting: Normal Static Standing: Good Dynamic Standing: Good Special Tests: Mobility Limitations Standardized Measure [facility] AM-PAC 6 clicks Basic Mobility Inpatient Short Form: Raw Score: 22 CMS Score: 21% deficit Informed Consent/Education: Patient was instructed in purpose of PT consult and plan of care. Agreeable to proceed with established PT POC to achieve personal goals. Assessment: Patient reports functional decline in mobility level and activity tolerance. Deferred walking in the hallway for this session because of new onset fever and shortness of breath along with high BP. Nurse Schafer aware and in agreement. Will plan on progressing mobility level when VS are more stabilized. Patient presents with clinical signs and symptoms consistent with current/admitting diagnoses that have resulted to mobility limitations, gait instability, generalized weakness, and overall ADL decline as demonstrated by the following impairment level findings: 1. Decreased strength to B UE/LE major muscle groups 2. Impaired sitting/standing balance 3. Impaired activity tolerance 4. Shortness of breath Impairments are contributing to the following functional limitations: 1. Difficulty with long distance ambulation without assistive device and physical assistance 2. Increased completion time for mobility ADL performance 3. Increased risk for falls Patient is assessed as a [id number] moderate complexity based on the following: History: 82-year-old male with past medical history as indicated above Examination: Demonstrable impairment in strength, balance, and mobility level with underlying impairments and functional limitations as exhibited above as well as deficit score of 21% utilizing the [facility] Mobility Inpatient Short Form Presentation: Evolving Decision Makin moderate complexity Goals: Goals X1 week 1. Bed-Chair independent with no AD 2. Chair-Bed independent with no AD 3. Independent gait on level surface with use of SPC vs no AD for at least 300 feet without report of pain nor dyspnea 4. Independent with home exercise program 5. Good static and dynamic standing balance/tolerance Plan of Care/Treatment Plan: 1-2x/day, 7 days/week x 1 week. Plan of care has been reviewed with the INORGANIC CHEMICAL TECHNICIAN providing the service under Physical Therapy direction. Initiate Physical Therapy intervention for pain management as needed, strengthening, bed mobility, transfers, gait, stairs, balance training, and use of assistive device. DISCHARGE RECOMMENDATIONS: [] Home with no services [] Home with services [specify] [] Home with outpatient PT [] [] SNF for continued rehabilitation [] [] Jail Care [] [] SNF versus LTC based on ability to participate and progress [] [X] PT vs no services depending on progress towards goals TREATMENT CODE/TIME: 97102 x 25 minutes beginning at 15:45 PM. Thank you for the opportunity to participate in the care of this patient. Janel Harrington PT, DPT, CLT [facility] [place], [place]
[2022-12-19] MEDS: guaiFENesin 600 MG TABCR PO (20:13)
[2022-12-19] MEDS: Melatonin 3 MG TAB 6 MG PO (20:15)
[2022-12-19 20:35] LABS: Anion Gap 12.6 mmol/L (3-11); BUN 19 mg/dL (7-18); CO2 20.4 mmol/L (21.0-32.0); CREATININE 1.1 mg/dL (0.70-1.30); Chloride 106 mmol/L (98-107); Estimated GFR 66.61 (mL/min/1.73m2); Glucose 254 mg/dL (74-106); Magnesium 2.1 mg/dL (1.8-2.4); Potassium 3.5 mmol/L (3.5-5.1); Sodium 139 mmol/L (136-145)
[2022-12-19] MEDS: cefTRIAXone 1 GM/50 ML BAG IVPB (23:53)
[2022-12-20 04:25] VITALS: RESP 1
[2022-12-20] MEDS: Albuterol/Ipratropium 3 ML UPD VIAL UPD (04:25)
[2022-12-20] MEDS: AZITHROMYCIN 250 MG in Normal Saline 250 ML IVPB (04:25)
[2022-12-20] MEDS: methylPREDNISolone SUCC 40 MG VIAL IVP ×3 (05:53→20:26)
[2022-12-20 06:39] VITALS: BP 141/72; PULSE 92; RESP 18; TEMP 36.8; O2SAT 93
[2022-12-20 07:09] LABS: Abs Immature Grans 0.16 10^3/uL (0.0-0.06); Absolute Lymphocyte Count 0.61 10^3/uL (1.2-3.4); Absolute Neutrophil Count 13.75 10^3/uL (1.2-6.7); Basophils % 0.3; HCT 27.5 % (40.0-50.0); HGB 9.5 g/dL (13.5-17.5); MCH 32.1 pg (27.0-33.0); MCHC 34.5 % (32.0-36.0); MCV 93 fL (80-95); MPV 10.1 fL (8.0-11.0); Monocytes % 5.1; Neutrophils % 89.6; Platelet Count 233 10^3/uL (130-400); RBC 2.96 10^6/uL (4.36-5.78); RDW 13.3 % (11.8-14.1); RDW-SD 45.3 fL; WBC 15.35 10^3/uL (4.4-10.8)
[2022-12-20 07:13] LABS: Absolute Basophil Count 0.05 10^3/uL (0.0-0.2); Absolute Monocyte Count 0.78 10^3/uL (0.1-0.8)
[2022-12-20 07:25] LABS: Anion Gap 12.5 mmol/L (3-11); BUN 19 mg/dL (7-18); CO2 24.5 mmol/L (21.0-32.0); CREATININE 0.9 mg/dL (0.70-1.30); Calcium 8.8 mg/dL (8.5-10.1); Chloride 106 mmol/L (98-107); Estimated GFR 84.74 (mL/min/1.73m2); Glucose 170 mg/dL (74-106); Magnesium 2.1 mg/dL (1.8-2.4); Potassium 3.3 mmol/L (3.5-5.1); Sodium 143 mmol/L (136-145)
[2022-12-20] MEDS: Enoxaparin 40 MG/0.4 ML SYR SC (09:03)
[2022-12-20] MEDS: Normal Saline Flush 10 ML SYR IVP ×2 (09:04→13:40)
[2022-12-20] MEDS: Lansoprazole 30 MG CAPCR PO (09:05)
[2022-12-20] MEDS: guaiFENesin 600 MG TABCR PO ×2 (09:05→20:26)
--- NOTE | 2022-12-20 09:07 | CMPROGNOTE_ITS ---
- If Service Date Differs Date of service: 12/20/22 Time of Service: 09:07 Care Management Progress Note S/O: Willard remains inpatient, and pleasant in interaction. CM continues to follow. A: 82 year old male admitted to [facility] 12/19/22 for Pneumonia P: Willard will return home when ready per MD. He will follow up with his PCP and plan of care as prescribed. He will transport via private vehicle with his .
--- NOTE | 2022-12-20 10:12 | W.PM.PROGNOT ---
Date of Service Date of service: 12/20/22 Time of Service: 10:12 Assessment and Plan Assessment and plan (1) Community acquired pneumonia: Status: Acute Assessment and plan: continue ceftriaxone and zithromycin day 5 of treatment. unable to wean off oxygen, continued 3 lpm with ambulation continue po burst continue i/s, acapella, (2) GERD (gastroesophageal reflux disease): Assessment and plan: Continue outpatient PPI. (3) DVT prophylaxis: Status: Acute Assessment and plan: LMWH (4) Discharge planning issues: Status: Acute Assessment and plan: will consult PT for discharge planning. discussed with Dr Klein (5) Hypokalemia: Status: Acute Assessment and plan: Potassium 3.3 - repleted, monitor Subjective Subjective Patient reports: no new complaints, tolerating a regular diet, bowel movement and afebrile; denies diarrhea, nausea, vomiting or shortness of breath Interval history since last seen: Willard is feeling better, he is awake, alert and up in a chair in the room. Exam Const General: cooperative, comfortable and no acute distress Nutritional Appearance: thin Orientation: alert, awake and oriented x3 HENMT Head: normal to inspection and normocephalic Mouth: oral mucosae normal Resp Effort & Inspection: normal respiratory effort Auscultation: clear to auscultation bilaterally, no rales, no rhonchi and no wheezes Cardio Rate: regular rate Rhythm: regular rhythm Heart Sounds: no murmurs GI Inspection: normal to inspection Palpation: soft Auscultation: normal bowel sounds Skin General skin exam: no rashes or lesions noted Neuro General: patient alert, patient awake, patient oriented x3 and moves all extremities Extrem General: normal to inspection, full ROM and no pedal edema Psych Appearance: grossly normal Mental Status: mental status grossly normal Speech and Movement: speech and movement normal Mood: congruent mood Affect: normal affect Objective Last Vital Signs Temp 36.8 C 12/20/22 06:39 Pulse 92 H 12/20/22 06:39 Resp 18 12/20/22 06:39 BP 141/72 H 12/20/22 06:39 Pulse Ox 93 12/20/22 06:39 Laboratory Results - last 24 hr 12/19/22 12/20/22 12/20/22 20:16 06:10 06:10 WBC RBC Hgb Hct MCV MCH MCHC RDW Plt Count MPV Immature Gran % Neutrophils % Lymphocytes % Monocytes % Eosinophils % Basophils % Nucleated RBC % Absolute Neutrophils Absolute Lymphocytes Absolute Monocytes Absolute Eosinophils Absolute Basophils Sodium 139 143 Potassium 3.5 3.3 L Chloride 106 106 Carbon Dioxide 20.4 L 24.5 Anion Gap 12.6 H 12.5 H BUN 19 H 19 H Creatinine 1.1 0.9 Est GFR (CKD-EPI 2020) 66.61 84.74 Glucose 254 H 170 H Calcium 9.0 8.8 Magnesium 2.1 2.1 12/20/22 06:10 WBC 15.35 H RBC 2.96 L Hgb 9.5 L Hct 27.5 L MCV 93 MCH 32.1 MCHC 34.5 RDW 13.3 Plt Count 233 MPV 10.1 Immature Gran % 1.0 Neutrophils % 89.6 Lymphocytes % 4.0 Monocytes % 5.1 Eosinophils % 0.0 Basophils % 0.3 Nucleated RBC % 0.0 Absolute Neutrophils 13.75 H Absolute Lymphocytes 0.61 L Absolute Monocytes 0.78 Absolute Eosinophils 0.00 Absolute Basophils 0.05 Sodium Potassium Chloride Carbon Dioxide Anion Gap BUN Creatinine Est GFR (CKD-EPI 2020) Glucose Calcium Magnesium PAWSS Have you Been Recently Intoxicated or Drunk Within the Last 30 days?: No Have you Ever Experienced Previous Episodes of Alcohol Withdrawal?: No Have you ever Experienced Withdrawal Seizures?: No Have you ever Experienced Delirium Tremens(DT)s?: No Have you ever undergone Alcohol Rehabilitation Treatment (i.e, inpt ot outpatient treatment programs)?: No Have you ever Experienced Blackouts?: No Have you ever Combined Alcohol with other Downers within the last 90 days?: No Have you ever Combined Alcohol with any other Substance of Abuse during the last 90 days?: No Result: 0 Time Spent with Patient Time Spent with Patient: 25-34 minutes Time was spent: preparing to see the patient(eg.review tests), ordering medications,tests, procedures, referring, communicating with other health child care team lead, indepentently interpreting results, counseling the patient and care coordination
[2022-12-20] MEDS: Potassium Chloride 20 MEQ TABCR 40 MEQ PO (11:55)
[2022-12-20 13:10] VITALS: PULSE 82; PULSE 87; PULSE 90; RESP 16; RESP 22; O2SAT 84; O2SAT 88; O2SAT 94
[2022-12-20] MEDS: Water,Injection,Sterile 10 ML VIAL (13:41)
[2022-12-20 15:37] VITALS: BP 157/78; PULSE 78; RESP 20; TEMP 36.6; O2SAT 91
--- NOTE | 2022-12-20 17:07 | PT.INTREAT ---
Date of service: 12/20/22 Time of Service: 15:26 PT Notes Visit Reasons: Pneumonia Inpatient Physical Therapy Treatment Note [facility] Date: 12/20/22 PRECAUTIONS: Standard. Fall. Activity as tolerated. SUBJECTIVE: patient reports he just got back from a walk with respiratory therapy, no longer requires O2 supplementation at rest. Continues to requires supplementation with ambulation with 2L/min via nasal cannula. OBJECTIVE: PAIN: None reported BED MOBILITY/TRANSFERS Rolling L/R: Independent Supine-sit: Independent Sit-supine: Independent Sit-stand: Independent Stand-sit: Independent Bed-Chair: Independent Chair-bed: Independent GAIT Assistive Device: None Weight bearing: Full Assist: O2 management Distance: 300 feet Deviation: none observed, no SOB, no LOB VITALS: Not monitored, however patient never became short of breath. Monitor closely tomorrow. NEURO LYNN: Standing balance challenges including cone tapping activity to challenge feed forward dynamic balance, single leg stance activity for static standing balance check with left leg balance better than right side. ASSESSMENT: Patient tolerates therapy very well, joking and smiling. Becomes a little short of breath nearing end of treatment session, coughs a few times upon returning to his room. PLAN: Continue treatment per plan of care, monitoring O2 Sats closely going forward. TREATMENT CODE/TIME: 99760 TherEx 10 minutes, 05263 Neuro Re-ed 15 minutes beginning at 15:26
--- NOTE | 2022-12-20 18:29 | PT.INTREAT ---
Date of service: 12/20/22 Time of Service: 11:23 PT Notes Visit Reasons: Pneumonia Inpatient Physical Therapy Treatment Note [facility] Date: 12/20/22 PRECAUTIONS: Standard. Fall. Activity as tolerated. SUBJECTIVE: Patient verbalizes feeling much better and is willing to work with PT this morning. States that his pre-breakfast medication got delayed which caused some upset in his stomach after breakfast, now resolved. OBJECTIVE: General Observation: Supine in bed. Oxygen supp via NC at 2 L/min. Occasional cough during walking activity. Vital signs: Desaturated to 84% while walking using finger oximeter and ear probe oximeter. Resaturated back to 88% with 2-3 minutes of rest. HR ranged from 75-110 bpm throughout.? PAIN: None reported ? BED MOBILITY/TRANSFERS? Rolling L/R: Independent Supine-sit: Independent ? Sit-supine: Independent? Sit-stand: Independent ? Stand-sit: Independent? Bed-Chair: Independent? Chair-bed: Independent ? GAIT? Assistive Device: None ? Weight bearing: FWB Assist: Supervision. No AD. Oxygen saturation monitoring provided by PT; patient managed oxygen tank wilson with no difficulty? Distance:? Needed to rest in standing after aevery 100 feet due to desaturation to 84% on 2L/min, Nurse Marcela aware. ? Deviation: Soila slow. Mild SOB subsides with standing rests? VITALS: Desaturation down to 84% needing standing rests with mild SOB, recovers after about 2-3 minutes on 2L/min THERA EX: Chest expansion exercises with sh flexion/ext incorprated into DBEx 5 Chest expansion exercises with sh hor abd/add incorporated into DBEx 5 ? ASSESSMENT:? Requires increased in oxygen supplemetation during walking activity due to desatruration to 84% on 2L, able to recover after 2-3 minutes to above 88%. Will require repeated gait oximetry to reassess oxygen needs variation. PLAN: Will need to coordinate walks with RT to assess for actual oxygen need for home. Provide HEP to further maximize ventilatory function. and B LE strength. DISCHARGE RECOMMENDATIONS: [] ? Home with no services [] ? Home with services [specify] [] ? Home with outpatient PT [] [] ? SNF for continued rehabilitation [] [] ? Senior Care Care [] [] ? SNF versus LTC based on ability to participate and progress [] [X]? HH PT vs no services depending on progress towards goals TREATMENT CODE/TIME: 96143 x 20 minutes, 24764 x 10 minutes beginning at 11:23 AM.
[2022-12-20 19:48] LABS: Legionella Ag Detection Urine Negative (Negative)
[2022-12-20] MEDS: Acetaminophen 325 MG TAB 650 MG PO (20:26)
[2022-12-20] MEDS: Melatonin 3 MG TAB 6 MG PO (21:53)
[2022-12-20] MEDS: cefTRIAXone 1 GM/50 ML BAG IVPB (23:51)
[2022-12-21 00:02] VITALS: BP 127/74; PULSE 76; RESP 18; TEMP 36.1; O2SAT 93
[2022-12-21] MEDS: AZITHROMYCIN 250 MG in Normal Saline 250 ML IVPB (03:45)
[2022-12-21] MEDS: methylPREDNISolone SUCC 40 MG VIAL IVP (05:04)
[2022-12-21 06:58] LABS: Abs Immature Grans 0.13 10^3/uL (0.0-0.06); Absolute Basophil Count 0.04 10^3/uL (0.0-0.2); Absolute Monocyte Count 0.69 10^3/uL (0.1-0.8); Basophils % 0.4; HCT 25.5 % (40.0-50.0); HGB 8.9 g/dL (13.5-17.5); Immature Grans % 1.2; Lymphocytes % 5.6; MCH 33.1 pg (27.0-33.0); MCHC 34.9 % (32.0-36.0); MCV 95 fL (80-95); MPV 10.4 fL (8.0-11.0); Monocytes % 6.3; Neutrophils % 86.5; RBC 2.69 10^6/uL (4.36-5.78); RDW 13.7 % (11.8-14.1); RDW-SD 47.2 fL; WBC 10.98 10^3/uL (4.4-10.8)
[2022-12-21 07:12] LABS: Absolute Lymphocyte Count 0.61 10^3/uL (1.2-3.4); Anion Gap 11.3 mmol/L (3-11); BUN 23 mg/dL (7-18); CO2 22.7 mmol/L (21.0-32.0); CREATININE 0.9 mg/dL (0.70-1.30); Calcium 8.5 mg/dL (8.5-10.1); Chloride 110 mmol/L (98-107); Estimated GFR 84.74 (mL/min/1.73m2); Glucose 129 mg/dL (74-106); Magnesium 2.1 mg/dL (1.8-2.4); Potassium 3.8 mmol/L (3.5-5.1); Sodium 144 mmol/L (136-145)
[2022-12-21 07:41] VITALS: BP 125/68; PULSE 75; RESP 20; TEMP 36.6; O2SAT 91
[2022-12-21] MEDS: Lansoprazole 30 MG CAPCR PO (07:43)
[2022-12-21] MEDS: guaiFENesin 600 MG TABCR PO (07:43)
[2022-12-21] MEDS: Enoxaparin 40 MG/0.4 ML SYR SC (07:44)
[2022-12-21 07:59] LABS: Diff Comment Diff Reviewed; Hypochromasia 2+; Platelet Count 217 10^3/uL (130-400); Polychromasia Present
[2022-12-21 08:00] LABS: Poikilocytes 1+
[2022-12-21 10:18] VITALS: PULSE 76; PULSE 85; RESP 16; RESP 24; O2SAT 90; O2SAT 94
--- NOTE | 2022-12-21 13:23 | PT.INTREAT ---
Date of service: 12/21/22 Time of Service: 10:08 PT Notes Visit Reasons: Pneumonia Inpatient Physical Therapy Treatment Note [facility] Date: 12/21/22 PRECAUTIONS: Fall, Standard, Activity as tolerated SUBJECTIVE: Patient reports feeling great, walking with Respiratory Therapy. OBJECTIVE: PAIN: none reported BED MOBILITY/TRANSFERS Rolling L/R: Independent Supine-sit: Independent Sit-supine: Independent Sit-stand: Independent Stand-sit: Independent Bed-Chair: Independent Chair-bed: Independent GAIT Assistive Device: none Weight bearing: full Assist: supervision, O2 management Distance: 227 feet Deviation: reduced arm swing VITALS: Desat to 88 per Respiratory Therapy, rebounded to 92 within 1 minute ASSESSMENT: Patient tolerated therapy well today PLAN: Continue therapy per plan of care. Respiratory recommends ambulating on room air, monitoring, if patient desats below 89 then apply supplemental O2 TREATMENT CODE/TIME: 14186 Gait 11 minutes
--- NOTE | 2022-12-21 14:51 | PT.INTREAT ---
Date of service: 12/21/22 Time of Service: 14:25 PT Notes Visit Reasons: Pneumonia Inpatient Physical Therapy Treatment Note [facility] Date: 12/21/22 PRECAUTIONS: Fall. Standard. Activity as tolerated. SUBJECTIVE: Patient feels not that great. Reports having loose stools, says RN requested a sample and he provided it. Reports feeling very nervous about going home, thinks it's too early, doesn't want to go home and have to come back again. OBJECTIVE: PAIN: None BED MOBILITY/TRANSFERS Rolling L/R: Independent Supine-sit: Independent Sit-supine: Independent Sit-stand: Independent Stand-sit: Independent Bed-Chair: Independent Chair-bed: Independent GAIT Assistive Device: none Weight bearing: full Assist: supervision Distance: 900 feet Deviation: reduced arm swing. Therapist cues to slow walking speed VITALS: 91-94 average with room air only. Desatted to 88 on one occasion, bounced back to 92 within 30 seconds with verbal cue for deep breathing. ASSESSMENT: Patient tolerated therapy well, is encouraged at the strength he is gaining, now may consider going home sooner rather than later. PLAN: Continue therapy per plan of care TREATMENT CODE/TIME: 20248 Gait 25 minutes starting at 1425
[2022-12-21 14:59] VITALS: BP 134/69; PULSE 76; RESP 20; TEMP 36.5; O2SAT 95
--- NOTE | 2022-12-21 16:58 | W.PM.DS.N ---
Date of service: 12/21/22 Time of Service: 16:58 DS: Diagnosis Discharge Diagnosis (1) Community acquired pneumonia: Status: Acute (2) GERD (gastroesophageal reflux disease): (3) DVT prophylaxis: Status: Deleted (4) Discharge planning issues: Status: Deleted (5) Hypokalemia: Status: Resolved Discharge Plan Disposition Patient Disposition: Home Condition: Improving Discharge Details Reason For Visit: Pneumonia Admit Date/Time: 12/21/22 12:10 Admit Provider: [place] Attending Provider: [place] Nunn Hospital Course Hospital Course: This is an 82 year old male with past medical history only significant for GERD, presented to the [facility] ED on 12/16/2022 with acute onset of cough and fever for one day.? He was in his normal state of health prior to, he had recently driven from [place] to [place] 12/08/22 and then from [place] to [place] on 12/14/22, a day prior to symptom onset.? During the night, he woke up with a cough and shortness of breath.? He coughed up thick sputum, and felt like he might have coughed up some food, no blood.? Work up in the ED was most consistent with community acquired pneumonia by imaging.? He was negative for PE.? He was started on azithromycin and ceftriaxone and admitted for further management.? He continued to be febrile, blood cultures repeated and antibiotics broadened to cover for aspiration based on his history.? He had no respiratory distress and no oxygen requirements.? After his fever broke he was feeling much improved.? He remained hemodynamically stable with no c/o.? He was discharged with 5 days of augmentin and doxycycline. He returned to the ED the next day 12/19/2022? reporting continued fever and ongoing weakness. He was readmitted to the medical floor and started back on IV abx. He had no fevers and did well with PT. He has no oxygen requirements. He did have a drop of H&H from to 05/16; suspect some hemodilution, but his stool tested heme positive, no bright red blood, no history of GI bleed. He was on enoxaparin while in hospital. Recommend retest H&H on 12/26. He is discharged today with continuation of oral abx for a total of 7 days. A prescription for albuterol inhaler was sent and a spacer was provided to him prior to departure with instruction of use. He is discharged stable to home with his spouse. Home Meds and New Rx's Prescriptions: New albuterol sulfate [ProAir HFA] 90 mcg/actuation HFA aerosol inhaler 2 puff inhalation 6XD PRNQty: 8.5 0RF Continued lansoprazole 30 MG capsule,delayed release(DR/EC) 30 mg PO DAILY vitamin E 1,000 UNIT capsule 1 cap PO DAILY Centrum Silver 1 EACH tablet 1 tab PO DAILY amoxicillin-pot clavulanate 875-125 mg tablet 1 tab PO BID Qty: 10 0RF doxycycline hyclate 100 mg capsule 100 mg PO BID Qty: 10 0RF guaifenesin [Mucinex] 600 mg tablet extended release 12hr 600 mg PO BID Qty: 10 0RF Discharge Instructions Instructions: Doxycycline (By mouth), Albuterol (By breathing), Amoxicillin/Clavulanate Potassium (By mouth), Community Acquired Pneumonia (DC) Additional Instructions: Continue Amoxicillin/Clavulanate and Doxycycline orally until completed. Use albuterol inhaler with spacer as needed. Take tylenol for fever. Keep your appointment at [facility]. Have your blood drawn before your appointment to check you hemoglobin. Stand Alone Forms: Nursing Discharge Form Referrals: Kolton Stern DO [OSTEOPATHIC DOCTOR] - (Keep your appointment on 12/26 @1030) Activity:: Activity as Tolerated Equipment/Supplies:: No Equipment Needed Diet:: As Tolerated Discharge Orders Discharge Orders: Discharge Order (Routine); Ordered 12/21/22 Ordered By: Destiney Robertson Other Ambulatory Orders: Complete Blood Count w/Diff (Routine) Timeframe: 20221226 Location: None Selected Ordered By: Destiney Robertson Discharge Data Discharge Date/Time-TO BE ENTERED AT DEPARTURE: 12/21/22 17:47 DS: Summary Time Spent with Patient providing and/or coordinating discharge services: Greater than 30 minutes Status at Discharge Functional status at discharge: independent ambulation Overall status at discharge: patient is progressing back to baseline Mental Status: mental status grossly normal Speech and Movement: speech and movement normal Mood: congruent mood Affect: normal affect Exam Psych Mental Status: mental status grossly normal Speech and Movement: speech and movement normal Mood: congruent mood Affect: normal affect DS: Data Vitals/I&O Vitals and I&O: Vital Signs Temperature 36.5 C 12/21/22 14:59 Temperature Source Tympanic 12/21/22 14:59 Pulse 76 12/21/22 14:59 Pulse Rhythm Regular 12/21/22 07:15 Pulse 90 12/19/22 02:01 Respiratory Rate 20 12/21/22 14:59 Respiratory Effort Normal, Non-Labored 12/21/22 07:15 Respiratory Depth Normal 12/21/22 07:15 Respiratory Pattern Normal 12/21/22 07:15 Blood Pressure 134/69 12/21/22 14:59 Blood Pressure Mean 86 12/19/22 02:01 Blood Pressure Position Sitting 12/18/22 20:27 Pulse Oximetry 95 12/21/22 14:59 Oxygen Delivery Method Room Air 12/21/22 14:59 Oxygen Flow Rate 0 12/21/22 14:59 Pain Level 0 12/21/22 00:02 Intake & Output 12/20/22 12/21/22 12/21/22 23:59 11:59 23:59 Intake Total 250 / 300 540 / 780 240 / 780 Output Total 300 / 300 Balance 250 / -400 240 / 480 240 / 480 Intake: IV 250 / 300 300 / 300 Oral 240 / 480 240 / 480 Output: Urine 300 / 300 Other: Urine Color Straw Urine Appearance Clear Urine Odor Normal Comment pT stated they voided independently Stool Occult Blood Positive Stool Size Small Stool Characteristics Soft Brown Voiding Methods Toilet Toilet Data Completed and Pending Labs on day of discharge: Labs from last 24 hours 12/21/22 12/21/22 12/19/22 06:10 06:10 20:15 WBC 10.98 H RBC 2.69 L Hgb 8.9 L Hct 25.5 L MCV 95 MCH 33.1 H MCHC 34.9 RDW 13.7 Plt Count 217 MPV 10.4 Immature Gran % 1.2 Neutrophils % 86.5 Lymphocytes % 5.6 Monocytes % 6.3 Eosinophils % 0.0 Basophils % 0.4 Nucleated RBC % 0.0 Absolute Neutrophils 9.50 H Absolute Lymphocytes 0.61 L Absolute Monocytes 0.69 Absolute Eosinophils 0.00 Absolute Basophils 0.04 RBC Morphology See Below Polychromasia Present Hypochromasia 2+ Poikilocytosis 1+ Sodium 144 Potassium 3.8 Chloride 110 H Carbon Dioxide 22.7 Anion Gap 11.3 H BUN 23 H Creatinine 0.9 Est GFR (CKD-EPI 2020) 84.74 Glucose 129 H Calcium 8.5 Magnesium 2.1 Urine Legionella Ag Negative Preliminary micro results at discharge 12/20/22 08:50 Sputum Culture - Preliminary Sputum Mary Albicans 12/18/22 23:50 Blood Culture - Preliminary Blood NO GROWTH 48 HOURS 12/18/22 23:30 Blood Culture - Preliminary Blood NO GROWTH 48 HOURS PFSH All Active Problems (Updated 12/22/22 @ 11:52 by Destiney Robertson NP) Anemia (Chronic) Abnormal EKG (Acute) Community acquired pneumonia (Acute) Medical History Chronic obstructive pulmonary disease Mild, on PFTs in 2019. Never had clinical disease. GERD (gastroesophageal reflux disease) Surgical History S/P appendectomy S/P hernia repair Social History Smoking/Tobacco Use Status: Former Tobacco Use Smoking risk assessment performed?: Yes Alcohol Intake: current Alcohol Intake frequency: a few times a week Counseling given: Yes Counseling provided: provider counseling and reduce to 2 or less/day Drug use: Never Substance use type: does not use Do you feel safe at home: Yes Do you feel safe in your relationship?: Yes Additional Social history: Lives with in [place] in winter, [place] in the summer. Former [employer]. Time Spent with Patient Time Spent with Patient: 45-69 minutes Time was spent: preparing to see the patient(eg.review tests), ordering medications,tests, procedures, referring, communicating with other health animal care giver, indepentently interpreting results, counseling the patient and care coordination
--- NOTE | 2022-12-21 17:08 | PDOC.CMDIS ---
- If Service Date Differs Date of service: 12/21/22 Time of Service: 17:08 LACE Index Scoring Tool - Questions: Length of Stay (in days): 2 Acuity (Admit via E.D.?): Yes Comorbidities: Chronic Pulmonary Disease E.D. Visits: 2 - Answers: Total Score: 9 Risk of Readmission: Low Risk Care Management Discharge Reason for Hospitalization: Re-admit for Pneumonia Discharge Plan: Willard will return home today with no new services. His s/o will drive him home via private vehicle. He will follow up with his PCP and discharge plan of care. He is happy to be going home. Patient/Family Education Needs: Review discharge instructions and limitations, discussion of self care needs including ask me three.
[2022-12-22 14:50] LABS: Streptococcus Pneumoniae Ag, U Negative (Negative)
[2022-12-23 15:00] LABS: Mycoplasma Pneumoniae PCR Negative; Specimen source Sputum
--- NOTE | 2022-12-24 12:15 | PT.INDS ---
Date of service: 12/21/22 PT Notes Visit Reasons: Pneumonia Physical Therapy Inpatient Discharge Summary Date: 12/21/2022 Dates of service: 12/19/2022 through 12/21/2022 This is a clinical summary of care provided for the duration of dates listed above. No charge was made in the completion of this documentation. Referring Doctor:? Thaddeus Madera,? PT Orders: PT CONSULT: Extended Stay Weakness Precautions: Fall. Standard. Activity as tolerated. Patient Profile/Admitting Diagnosis:? Benedict is an 82-year-old male who presented to the ED on 12/18/2022 due to fever,? shortness of breath, cough, and diarrhea.? Patient is admitted for management of community-acquired pneumonia, COPD exacerbation, and GERD. PMHX: All Active Problems? Pneumonia (Acute) Hypoxia (Acute) Fever (Acute) Abnormal EKG (Acute) Community acquired pneumonia (Acute) Medical History? Chronic obstructive pulmonary disease Mild, on PFTs in 2019.? Never had clinical disease.GERD (gastroesophageal reflux disease) Surgical History? S/P appendectomy S/P hernia repair Social History/Home Situation: Lives with in a private home with no stairs to enter.? Independent with all aspects of ADLs prior to admission without any assistive device/adaptive equipment.? Equipment Owned/DME: None Subjective: NT. See most recent SACK CLEANER notes. Objective: General Observation: NT. See most recent SACK CLEANER notes. Mental Status: NT. See most recent SACK CLEANER notes. Pain: NT. See most recent SACK CLEANER notes. Vital Signs: NT. See most recent SACK CLEANER notes. ROM: Right Upper Extremity: ? Shoulder Flexion WFL. Shoulder abduction WFL. Elbow flexion WFL. Wrist flexion WFL. Functional opening and closing of hand WFL. Left Upper Extremity:? Shoulder Flexion WFL. Shoulder abduction WFL. Elbow flexion WFL. Wrist flexion WFL. Functional opening and closing of hand WFL. Right Lower Extremity: Hip flexion WFL. Hip abduction WFL. Knee flexion WFL. Ankle dorsiflexion WFL. Ankle plantarflexion WFL. Left Lower Extremity: Hip flexion WFL. Hip abduction WFL. Knee flexion WFL. Ankle dorsiflexion WFL. Ankle plantarflexion WFL. Strength: Right Upper Extremity: Shoulder flexors 4/5. Shoulder abductors 4/5. Elbow flexors 5/5. Elbow extensors 5/5. Quenching Car Operator strong. Left Upper Extremity: Shoulder flexors 4/5. Shoulder abductors 4/5. Elbow flexors 5/5. Elbow extensors 5/5. Quenching Car Operator strong. Right Lower Extremity: Hip flexors 4/5. Hip abductors 4/5. Knee flexors 5/5. Knee extensors 4/5. Ankle dorsiflexors 4/5. Ankle plantarflexors 4/5. Left Lower Extremity: Hip flexors 4/5. Hip abductors 4/5. Knee flexors 5/5. Knee extensors 4/5. Ankle dorsiflexors 4/5. Ankle plantarflexors 4/5. ED MOBILITY/TRANSFERS? Rolling L/R: Independent Supine-sit: Independent? Sit-supine: Independent ? Sit-stand: Independent? Stand-sit: Independent ? Bed-Chair: Independent ? Chair-bed: Independent ? GAIT? Assistive Device: No AD? Weight bearing: FWB Assist: Supervision ? Distance:? 900 feet? Deviation: reduced arm swing. Therapist cues to slow walking speed? VITALS:? 91-94% average with room air only. Desaturated to 88% on one occasion, bounced back to 92 within 30 seconds with verbal cue for deep breathing. ? Balance: Static Sitting: Normal Dynamic Sitting: Normal Static Standing: Good Dynamic Standing: Good Assessment: Patient reports functional decline in mobility level and activity tolerance.? Deferred walking in the hallway for this session because of new onset fever and shortness of breath along with high BP.? Nurse Schafer aware and in agreement.? Will plan on progressing mobility level when VS are more stabilized. Patient presents with clinical signs and symptoms consistent with current/admitting diagnoses that have resulted to mobility limitations, gait instability, generalized weakness, and overall ADL decline as demonstrated by the following impairment level findings: 1.? Decreased strength to? B UE/LE major muscle groups 2.? Impaired sitting/standing balance 3.? Impaired activity tolerance 4.? Shortness of breath Impairments are contributing to the following functional limitations: 1.? Difficulty with long distance ambulation without assistive device and physical assistance 2.? Increased completion time for mobility ADL performance 3.? Increased risk for falls Goals: Goals X1 week 1. Bed-Chair independent with no AD MET 2. Chair-Bed independent with no AD MET 3. Independent gait on level surface with use of SPC vs no AD for at least 300 feet without report of pain nor dyspnea MET 4. Independent with home exercise program MET 5. Good static and dynamic standing balance/tolerance MET Plan of Care/Treatment Plan: 1-2x/day, 7 days/week x 1 week. Plan of care has been reviewed with the SACK CLEANER providing the service under Physical Therapy direction. Initiate Physical Therapy intervention for pain management as needed, strengthening, bed mobility, transfers, gait, stairs, balance training, and use of assistive device. DISCHARGE RECOMMENDATIONS: [] ? Home with no services [] ? Home with services [specify] [] ? Home with outpatient PT [] [] ? SNF for continued rehabilitation [] [] ? Freight Traffic Consultant Care [] [] ? SNF versus LTC based on ability to participate and progress [] [X]? HH PT vs no services depending on progress towards goals TREATMENT CODE/TIME: MI Thank you for the opportunity to participate in the care of this patient. Janel Harrington PT, DPT, CLT [facility] [place], [place]
== END 2022-12-21 17:47 | disposition home or self-care (01) | DRG 194 ==
LOC: ER 12-19 01:19 → MS 12-19 02:16
PROVIDERS: Internal Medicine; Nurse Practitioner Acute Care; Nurse Practitioner Family; Admitting Provider General Practice; Emergency Provider Physician Assistant; Visit Provider General Practice
DX: J18.9 Pneumonia, unspecified organism (principal); J44.0 Chronic obstructive pulmonary disease with (acute) lower respiratory infection; R53.1 Weakness; R09.02 Hypoxemia; K21.9 Gastro-esophageal reflux disease without esophagitis; Z87.891 Personal history of nicotine dependence; E87.6 Hypokalemia; I49.3 Ventricular premature depolarization
CPT/HCPCS: 36415; 80048; 80053; 84145; 87040; 87449; 87637; 93005; 94618; 96365; 96366; 96367; 96368; 96375; 97110; 97112; 97116; 97162; 97530; 99285; J1650; 71046; 83605; 83735; 83880; 84484; 85025; 87070; 87205; 87581; 87899; 93010; 94640; 94667; 94668; 94760; 99222; 99232; 99239; J0131; J0456; J0696; J2930; J7620

== ENCOUNTER 2025-04-08 10:25 | Emergency (ER) | payer MEDICARE, OTHER, SELFPAY ==
[2025-04-08 10:27] VITALS: BP 145/77; PULSE 93; RESP 16; TEMP 36.6; O2SAT 94
--- NOTE | 2025-04-08 10:42 | W.ED.GENAD ---
Discharge Plan Disposition Patient Disposition: Home Condition: Stable Discharge Details Clinical Impression: COVID-19 Primary Care Provider: Unknown,Unknown ED Provider: Chuy Tyler Home Meds and New Rx's Prescriptions: New Paxlovid 300 mg (150 mg x 2)-100 mg tablets,dose pack See Rx Instructions .ROUTE .COMPLEX Qty: 30 0RF Rx Instructions: take TWO 150 mg tablets of nirmatrelvir with ONE 100 mg tablet of ritonavir twice daily for 5 days Continued lansoprazole 30 MG capsule,delayed release(DR/EC) 30 mg PO DAILY Centrum Silver 1 EACH tablet 1 tab PO DAILY aspirin [Adult Low Dose Aspirin] 81 mg tablet,delayed release (DR/EC) 81 mg PO DAILY albuterol sulfate [ProAir HFA] 90 mcg/actuation HFA aerosol inhaler 2 puff inhalation 6XD PRNQty: 8.5 0RF Discharge Instructions Instructions: COVID-19 ED, Nirmatrelvir and Ritonavir Additional Instructions: You were seen in the emergency department for your recent developing URI symptoms after cruise with sick contacts. You tested positive for COVID, I am prescribing a the oral medication Paxlovid which is shown to reduce severe COVID and hospitalization, please keep in mind that there may be quite excessive linares on this medication as the government subsidized COVID emergency funding has ended- if your insurance covers it-great, but if not you will likely be just fine- as you are vaccinated- with Tylenol & ibuprofen and old-fashioned cold home remedies. Please return for any respiratory distress or other emergent concerns. Please follow-up with your PCP for surveillance of a pulmonary nodule seen in your upper R lung- with a CT scan in 6-12 months. Otherwise your chest XR is benign. Discharge Data Discharge Date/Time-TO BE ENTERED AT DEPARTURE: 04/08/25 11:33 HPI General Date/Time Provider Initiated Documentation: 04/08/25 10:36. HPI Narrative: 84 year-old male presents to ED today by POV/ambulating with a chief complaint of cough, fever, fatigue with onset 2 days ago- recently returned from a cruise in [place] with and friends- multiple people sick. Quality described as generalized URI symptoms, no radiation to cough, shortness of breath, nausea, vomiting, diarrhea, shortness of breath. Severity is described as moderate. Palliating factors include nothing specific attempted. Provoking factors include nothing specific attempted. Events leading up to the incident/Associated Symptoms: Patient UTD on recommended respiratory vaccinations. Patient not anticoagulated. Related Data Home Medications ?Medication ?Instructions ?Recorded ?Confirmed lansoprazole 30 mg capsule,delayed 30 mg PO DAILY 01/12/13 04/08/25 release byowzqna-chg-soacq acid 0.4 1 tab PO DAILY 04/09/15 04/08/25 mg-lycopene 300 mcg-lutein 250 mcg tablet (Centrum Silver) albuterol sulfate 90 mcg/actuation 2 puff inhalation 6XD PRN #8.5 12/21/22 04/08/25 aerosol inhaler (ProAir HFA) grams aspirin 81 mg tablet,delayed 81 mg PO DAILY 04/08/25 04/08/25 release (Adult Low Dose Aspirin) nirmatrelvir 300 mg (150 mg See Rx Instructions PO .COMPLEX 04/08/25 x2)-ritonavir 100 mg tablet,dose #30 tabs pack (Paxlovid) Previous Rx's ?Medication ?Instructions ?Recorded albuterol sulfate 90 mcg/actuation 2 puff inhalation 6XD PRN #8.5 12/21/22 aerosol inhaler (ProAir HFA) grams nirmatrelvir 300 mg (150 mg See Rx Instructions PO .COMPLEX 04/08/25 x2)-ritonavir 100 mg tablet,dose #30 tabs pack (Paxlovid) Allergies Allergy/AdvReac Type Severity Reaction Status Date / Time No Known Allergies Allergy Verified 04/08/25 10:29 General Stated Complaint: RespSymp JALYN: 3 Review of Systems All systems reviewed & are unremarkable except as noted in HPI and below Exam Narrative Exam Narrative: GENERAL APPEARANCE: Well-nourished, non-toxic, awake and alert, atraumatic, no acute distress. SKIN: Warm, pink, dry, intact, without rashes/lesions/ulcerations. HEAD: Normocephalic, atraumatic, normal hair distribution for gender/age. EYES: Normal conjunctiva, no exudates on lids/lashes. ENT: Nares patent, no circumoral cyanosis, no facial swelling NECK: Supple, trachea midline, painless cervical ROM. LUNGS/CHEST: Lungs CTA bilaterally- no rhonchi/rales/wheezes diffusely, non-labored respirations, normal A/P diameter, symmetrical expansion, no chest wall deformity HEART (CV/PV): Regular rate and rhythm without murmur, no peripheral edema, no JVD. ABDOMEN: Soft, non-distended, no guarding. MSK: Normal ROM, no swelling/deformity to bilateral UEs or LEs, moving all extremities without weakness, no cyanosis, spine midline without tenderness, normal curvature. NEURO: Mental Status AAOx4 - alert to person, place, time, events No facial droop, no forehead involvement. Motor: No focal weakness - strength 5/5 in bilateral UEs and LEs, proximal and distal, symmetric. Sensory: sensation intact to light touch globally. Gait normal: patient ambulated without ataxia into ED room. PSYCH: euthymic, cooperative, pleasant, appropriate speech Course Vital Signs Vital signs: Vital Signs Temperature 36.6 C 04/08/25 10:27 Pulse 93 H 04/08/25 10:27 Respiratory Rate 16 04/08/25 10:27 Blood Pressure 145/77 H 04/08/25 10:27 Pulse Oximetry 94 04/08/25 10:27 Temperature 36.6 C 04/08/25 10:27 Temperature Source Oral 04/08/25 10:27 Pulse 93 H 04/08/25 10:27 Respiratory Rate 16 04/08/25 10:27 Blood Pressure 145/77 H 04/08/25 10:27 Blood Pressure Position Sitting 04/08/25 10:27 Pulse Oximetry 94 04/08/25 10:27 Oxygen Delivery Method Room Air 04/08/25 10:27 Oxygen Flow Rate 0 04/08/25 10:27 Medical Decision Making This dictation utilizes [id number] dictation software and may contain unedited grammatical errors. 84 year-old male presents to ED today by POV/ambulating with a chief complaint of cough, fever, fatigue with onset 2 days ago- recently returned from a cruise in [place] with and friends- multiple people sick. Quality described as generalized URI symptoms, no radiation to cough, shortness of breath, nausea, vomiting, diarrhea, shortness of breath. Severity is described as moderate. Palliating factors include nothing specific attempted. Provoking factors include nothing specific attempted. Events leading up to the incident/Associated Symptoms: Patient UTD on recommended respiratory vaccinations. Patients' medical history: COPD, GERD. Family and social history: Long ago history of smoking, recent travel sick contacts. Pertinent exam findings / vital signs include lungs CTA, vital stable, no respiratory distress, nontoxic and afebrile. Differential / pathologies of concern include viral syndrome, pneumonia. Diagnostic studies of: - POC COVID/flu rapid antigen, x-ray chest. - POC COVID flu positive - X-ray chest shows no acute pneumonia, did certified lactation counselor him on his nodular density that needs surveillance Interventions of: - Prescribed Paxlovid did discuss possible expense of the drug as the emergency use authorization has for now, counseled that they should be fine with 5 vaccinations and simple cold and flu care at home. ED Course/Assessment/Plan: 84-year-old male presents with COVID-19, vaccinated and boosted with 5 shots in total, recent travel to [place] on a cruise where they have multiple sick contacts of their friends were on the cruise with them, no pneumonia, no signs of respiratory distress, counseled on symptomatic management at home, patient states he took COVID 5 times and is comfortable with care at home and return precautions for respiratory distress. Findings not consistent with hypoxic respiratory failure, pneumonia, unstable vitals. Disposition of COVID-19. Patient verbalized understanding of the plan and return to ED criteria and engaged in shared decision making. Medical Records Medical records reviewed: Yes I reviewed the patient's medical records. Imaging Data Radiologic Study: Attestation: I personally reviewed and interpreted this imaging study as follows: Imaging: X-Ray Radiologist's impression: EXAM: XR CHEST 2V PA LATERAL CLINICAL HISTORY: productive cough. TECHNIQUE: 2D digital imaging was performed. COMPARISON: CT CT CHEST PE ABD PELVIS W from 12/16/2022 CR,XR XR CHEST 2V PA LATERAL from 12/18/2022 FINDINGS: 2 views: Small retrocardiac hiatal hernia again noted. Heart size is normal. The mediastinum is not widened. The previously present right upper lobe infiltrate seen in 2022 has resolved. There are mild increased markings in the lateral right lung base evident. Also slightly increased markings in left lung base which appear unchanged. There is also bowel loop in the left upper quadrant medially subjacent to tented left hemidiaphragm which is the splenic flexure of the colon and this appears unchanged from 2022. There is also a small noncalcified 1 cm nodule in right upper lobe or possibly superior segment right lower lobe; this visible within the 5th and 6th rib interspace No pleural effusions. No pulmonary edema. IMPRESSION: Compared to 2022 the right upper lobe infiltrate has resolved. However, there is some mild infiltrate in the lateral right lung base as well as some scarring or platelike atelectasis at this level. There are no pleural effusions. There is also a small nodular density in the right upper lobe between the 5th and 6th ribs, this measuring approximately 1 cm size.. This may be a significant finding. Recommend follow-up CT scan. Lab Data Lab results reviewed: Yes I reviewed the patient's lab results. Lab results narrative: POC Covid (+) PFSH All Active Problems (Updated 04/08/25 @ 11:06 by PATRICIA Holden) COVID-19 (Acute) Former smoker (Acute) Anemia (Chronic) Community acquired pneumonia (Acute) Medical History Chronic obstructive pulmonary disease Mild, on PFTs in 2019. Never had clinical disease. GERD (gastroesophageal reflux disease) Surgical History S/P appendectomy S/P hernia repair Social History Smoking/Tobacco Use Status: Former Tobacco Use Smoking risk assessment performed?: Yes Alcohol Intake: current Alcohol Intake frequency: a few times a week Counseling given: Yes Counseling provided: provider counseling and reduce to 2 or less/day Drug use: Never Substance use type: does not use Do you feel safe at home: Yes Do you feel safe in your relationship?: Yes Additional Social history: Lives with in [place] in winter, [place] in the summer. 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
--- NOTE | 2025-04-08 11:12 | DI.RAD_ITS ---
Exam(s) XR CHEST 2V PA LATERAL EXAM: XR CHEST 2V PA LATERAL CLINICAL HISTORY: productive cough. TECHNIQUE: 2D digital imaging was performed. COMPARISON: CT CT CHEST PE ABD PELVIS W from 12/16/2022 CR,XR XR CHEST 2V PA LATERAL from 12/18/2022 FINDINGS: 2 views: Small retrocardiac hiatal hernia again noted. Heart size is normal. The mediastinum is not widened. The previously present right upper lobe infiltrate seen in 2022 has resolved. There are mild increased markings in the lateral right lung base evident. Also slightly increased markings in left lung base which appear unchanged. There is also bowel loop in the left upper quadrant medially subjacent to tented left hemidiaphragm which is the splenic flexure of the colon and this appears unchanged from 202. There is also a small noncalcified 1 cm nodule in right upper lobe or possibly superior segment right lower lobe; this visible within the 5th and 6th rib interspace No pleural effusions. No pulmonary edema. IMPRESSION: Compared to 2022 the right upper lobe infiltrate has resolved. However, there is some mild infiltrate in the lateral right lung base as well as some scarring or platelike atelectasis at this level. There are no pleural effusions. There is also a small nodular density in the right upper lobe between the 5th and 6th ribs, this measuring approximately 1 cm size.. This may be a significant finding. Recommend follow-up CT scan. DATA REPOSITORY: RADIATION DOSE DELIVERED:
== END 2025-04-08 11:33 | disposition home or self-care (01) ==
PROVIDERS: Emergency Provider Physician Assistant
DX: U07.1 COVID-19 (principal)
CPT/HCPCS: 99283 ×2; 87428; 87637; 71046

== ENCOUNTER 2025-04-14 10:22 | Emergency (ER) | payer MEDICARE, OTHER, SELFPAY ==
[2025-04-14 10:26] VITALS: BP 148/73; PULSE 67; RESP 16; TEMP 36.8; O2SAT 95
--- NOTE | 2025-04-14 11:45 | ED.GENADUL_ITS ---
Discharge Plan Disposition Patient Disposition: Home Condition: Stable Discharge Details Clinical Impression: Right ear impacted cerumen Primary Care Provider: Unknown,Unknown ED Provider: Cal Soriano Home Meds and New Rx's Prescriptions: New Debrox 6.5 % drops 5 drp otic (ear) Q12H 7 Days Qty: 15 0RF Continued lansoprazole 30 MG capsule,delayed release(DR/EC) 30 mg PO DAILY Centrum Silver 1 EACH tablet 1 tab PO DAILY aspirin [Adult Low Dose Aspirin] 81 mg tablet,delayed release (DR/EC) 81 mg PO DAILY albuterol sulfate [ProAir HFA] 90 mcg/actuation HFA aerosol inhaler 2 puff inhalation 6XD PRNQty: 8.5 0RF Discharge Instructions Instructions: Ear Wax Impaction ED Additional Instructions: Please follow-up with your primary care physician. Please follow-up with your nose and throat specialist. Use Debrox twice a day as instructed on label for the next 1 to 2 weeks. Return to the emergency department immediately for any worsening or new concerning symptoms. Referrals: Jaciel Negron MD [ [facility] STAFF PHYSICIAN, ENT Surgical] Discharge Data Discharge Date/Time-TO BE ENTERED AT DEPARTURE: 04/14/25 12:05 HPI General Mode of arrival: ambulatory . Date/Time Provider Initiated Documentation: 04/14/25 11:01 . Limitations to Documentation: no limitations . Information obtained by: patient and family . HPI Narrative: HISTORY OF PRESENT ILLNESS 84-year-old male with history of COVID-19 presenting with right ear pain since 02/27/2025. Pain described as blocked sensation and disrupting sleep. He notes associated hearing loss in right ear. Despite visits to three clinics and ear flushing, symptoms persist. Recently seen and diagnosed with COVID. Tested negative for COVID-19 yesterday at 0000 hours. Related Data Home Medications ?Medication ?Instructions ?Recorded ?Confirmed lansoprazole 30 mg capsule,delayed 30 mg PO DAILY 12/2004/14/25 release ljbmsajz-say-zjuyr acid 0.4 1 tab PO DAILY 04/09/15 mg-lycopene 300 mcg-lutein 250 mcg tablet (Centrum Silver) albuterol sulfate 90 mcg/actuation 2 puff inhalation 6 XD PRN #8.5 12/21/22 04/14/25 aerosol inhaler (ProAir HFA) grams aspirin 81 mg tablet,delayed 81 mg PO DAILY 04/08/25 0 04/14/25 release (Adult Low Dose Aspirin) carbamide peroxide 6.5 % ear drops 5 drp otic (ear) Q1 2H 1 week #15 mL 04/14/25 (Debrox) Previous Rx's ?Medication ?Instructions ?Recorded albuterol sulfate 90 mcg/actuation 2 puff inhalation 6 XD PRN #8.5 12/21/22 aerosol inhaler (ProAir HFA) grams carbamide peroxide 6.5 % ear drops 5 drp otic (ear) Q1 2H 1 week #15 mL 04/14/25 (Debrox) Allergies Allergy/AdvReac Type Severity Reaction Status Date / Time No Known Allergies Allergy Verified 04/14/25 10:25 General Stated Complaint: EarProblem JALYN: 4 Review of Systems Constitutional Constitutional: Denies fever(s) ENT Ears, Nose, Mouth, and Throat: Reports system reviewed and no additional complaints, except as documented and Reports as per HPI Exam Const General: cooperative Orientation: alert and awake HENPA Ears: TM normal on the left, mastoids normal, no periauricular adenopathy, EAC abnormal cerumen impaction on the right and unable to visualize TM on the right Course Vital Signs Vital signs: Vital Signs Temperature 36.8 C 04/14/25 10:26 Pulse 67 04/14/25 10:26 Respiratory Rate 16 04/14/25 10:26 Blood Pressure 148/73 H 04/14/25 10:26 Pulse Oximetry 95 04/14/25 10:26 Temperature 36.8 C 04/14/25 10:26 Temperature Source Oral 04/14/25 10:26 Pulse 67 04/14/25 10:26 Respiratory Rate 16 04/14/25 10:26 Blood Pressure 148/73 H 04/14/25 10:26 Pulse Oximetry 95 04/14/25 10:26 Pain Level 7 04/14/25 10:26 Medical Decision Making ASSESSMENT AND PLAN 84-year-old male with right ear pain since 02/27/2025. History of COVID-19 treated with Paxlovid. Patient has been evaluated and treated mulitple times for cerumen impaction and irrigation has not been successful. Differential Diagnosis: - Cerumen impaction: Hard cerumen noted. Final Assessment: Ear discomfort due to hard cerumen impaction. History of recent COVID-19. Clinical Impression: - Cerumen impaction - History of COVID-19 Disposition: Discharge home with outpatient followup. Advised debrox twice daily for the next week. Advised return if symptoms worsen or new symptoms develop. Follow-Up: ENT within 1-2 weeks. Patient Education: Discussed ear flushing techniques with use of debrox. This document was written with the assistance of SANDOVAL De La Garza. The patient consented to its use. PFSH All Active Problems (Updated 04/14/25 @ 11:45 by Cal Soriano MD) Right ear impacted cerumen (Acute) COVID-19 (Acute) Former smoker (Acute) Anemia (Chronic) Community acquired pneumonia (Acute) Medical History Chronic obstructive pulmonary disease Mild, on PFTs in 2019. Never had clinical disease. GERD (gastroesophageal reflux disease) Surgical History S/P appendectomy S/P hernia repair Social History Smoking/Tobacco Use Status: Former Tobacco Use Smoking risk assessment performed?: Yes Alcohol Intake: current Alcohol Intake frequency: a few times a week Counseling given: Yes Counseling provided: provider counseling and reduce to 2 or less/day Drug use: Never Substance use type: does not use Do you feel safe at home: Yes Do you feel safe in your relationship?: Yes Additional Social history: Lives with in [place] in winter, [place] in the summer. 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
[2025-04-14 12:00] VITALS: BP 144/70; PULSE 67; RESP 18; TEMP 37.2; O2SAT 98
== END 2025-04-14 12:05 | disposition home or self-care (01) ==
PROVIDERS: Emergency Provider Student in an Organized Health Care Education/Training Program
DX: H92.01 Otalgia, right ear (principal); H61.21 Impacted cerumen, right ear
CPT/HCPCS: 99282; 99283

== ENCOUNTER 2025-04-23 08:41 | Emergency (ER) | payer MEDICARE, OTHER, SELFPAY ==
[2025-04-23 08:42] VITALS: BP 145/98; PULSE 73; RESP 15; O2SAT 99
[2025-04-23] MEDS: diazePAM 10 MG/2 ML SYR 2 MG IVP (09:41)
[2025-04-23 09:43] LABS: Abs Immature Grans 0.37 10^3/uL (0.0-0.06); HCT 23.4 % (40.0-50.0); HGB 7.9 g/dL (13.5-17.5); Immature Grans % 4.3 %; MCH 29.0 pg (27.0-33.0); MCHC 33.8 % (32.0-36.0); MCV 86 fL (80-95); MPV 11.2 fL (8.0-11.0); Platelet Count 151 10^3/uL (130-400); RBC 2.72 10^6/uL (4.36-5.78); RDW 17.1 % (11.8-14.1); RDW-SD 52.9 fL; WBC 8.62 10^3/uL (4.4-10.8)
[2025-04-23] MEDS: ACETAMINOPHEN 500 MG/50 ML BAG 200 MG IVPB (09:45)
--- NOTE | 2025-04-23 09:45 | DI.CT_ITS ---
Exam(s) CT ABDOMEN PELVIS W EXAM: CT ABDOMEN PELVIS W CLINICAL HISTORY: right flank pain, anemia TECHNIQUE: Imaging Protocol: Axial computed tomography images with coronal and sagittal reformatted images were created and reviewed. CONTRAST MATERIAL: Intravenous: Omnipaque 350 Contrast volume:70 mL Oral: No COMPARISON: CT CT CHEST PE ABD PELVIS W from 12/16/2022 FINDINGS: ABDOMEN: Lung Bases: There is a moderate size hiatal hernia. There are emphysematous changes in the lungs. There is also mild honeycombing suggesting pulmonary fibrosis. Liver: Normal density. There is a simple cyst in the left lobe of the liver. There are no suspicious hepatic masses. Portal, Superior Mesenteric, and Splenic Veins: Unremarkable. Gallbladder and Biliary Tract: Cholelithiasis. There is no biliary ductal dilatation. Pancreas: Normal density, no abnormal calcifications or inflammatory process. Spleen: Normal. Adrenals: No masses seen. Kidneys: Normal size, contour and axis. No radiodense stones or obstructive uropathy. There are no suspicious renal masses. Abdominal Aorta: Abdominal portion non-dilated. Atherosclerotic calcification is present. Bowel: Colonic diverticulosis is present without evidence of acute diverticulitis. There is no evidence of bowel obstruction or bowel wall thickening. There is no evidence of appendicitis. Peritoneal Cavity: No ascites, collection or mesenteric inflammatory response. No free air. Lymph Nodes: Within normal limits. Bones: Within normal limits for the patient's age. Soft Tissues: Unremarkable. PELVIS: Bladder: Symmetric distention, no gross wall thickening. Reproductive Organs: Unremarkable as visualized. Lymph Nodes: Within normal limits. Bones: Within normal limits for the patient's age. IMPRESSION: 1. There is no evidence of nephrolithiasis or hydronephrosis. 2. Cholelithiasis without CT evidence of acute cholecystitis. There is no biliary ductal dilatation. 3. No evidence of appendicitis. 4. Diverticulosis of the colon but no evidence of acute diverticulitis. RADIATION DOSE DELIVERED: 291.18mGy.cm Total DLP DATA REPOSITORY: All CT scans at this facility are submitted to the National Radiology Data Registry (NRDR) Dose Index Registry (DIR) with the [employer] (A[employer]). RADIATION OPTIMIZATION: All CT scans at this facility use at least one of these dose optimization techniques: automated exposure control; mA and/or kV adjustment per patient size (includes targeted exams where dose is matched to clinical indication); or iterative reconstruction.
[2025-04-23 10:06] LABS: ALT 21 U/L (16-63); AST 20 U/L (15-37); Albumin 3.4 g/dL (3.4-5.0); Alkaline Phosphatase 93 U/L (46-116); Anion Gap 5.0 mmol/L (3-11); BUN 16 mg/dL (7-18); Bilirubin, Total 0.5 mg/dL (0.2-1.0); CO2 28.0 mmol/L (21.0-32.0); Calcium 8.7 mg/dL (8.5-10.1); Chloride 107 mmol/L (98-107); Estimated GFR 83.70 (mL/min/1.73m2); Glucose 103 mg/dL (74-106); Potassium 3.6 mmol/L (3.5-5.1); Sodium 140 mmol/L (136-145); Total Protein 6.8 g/dL (6.4-8.2)
[2025-04-23 10:17] LABS: Glucose Negative (Negative)
[2025-04-23 10:26] LABS: Lab Add On Test DONE
[2025-04-23] MEDS: Normal Saline - Diluent 50 ML VIAL IJ (10:47)
[2025-04-23] MEDS: Normal Saline Flush 10 ML SYR IVP (10:47)
[2025-04-23] MEDS: Omnipaque 350 MG/ML 100 ML BTL IJ (10:48)
[2025-04-23 10:57] LABS: Lab Add On Test DONE
[2025-04-23 10:58] VITALS: BP 169/69; PULSE 55; O2SAT 100
[2025-04-23 10:58] LABS: Lab Add On Test DONE
[2025-04-23 11:09] LABS: Iron 84 ug/dL (65-175); Total Iron Binding Capacity 229 ug/dL (250-450); Transferrin Sat 37 % (20-55)
[2025-04-23 11:13] LABS: ESR 5 mm/hr (0-20)
[2025-04-23 11:23] LABS: Ferritin 719 ng/mL (26-388)
[2025-04-23 11:35] LABS: C-Reactive Protein 0.66 mg/dL (<or=0.5)
[2025-04-23 13:07] VITALS: BP 146/74; PULSE 62; O2SAT 100
--- NOTE | 2025-04-23 14:59 | ED.GENADUL_ITS ---
Discharge Plan Disposition Patient Disposition: Home Condition: Stable Discharge Details Clinical Impression: Back strain, Tympanic membrane disorder, Anemia Primary Care Provider: Unknown,Unknown ED Provider: Yudith Calix Home Meds and New Rx's Prescriptions: New ofloxacin 0.3 % drops 10 drp otic (ear) DAILY 7 Days Qty: 5 0RF diazepam [Valium] 2 mg tablet 2 mg PO BID PRNQty: 10 0RF lidocaine [Lidoderm] 5 % adhesive patch,medicated 1 patch topical DAILY Qty: 15 0RF Rx Instructions: leave on most painful area for up to 12 hrs Continued lansoprazole 30 MG capsule,delayed release(DR/EC) 30 mg PO DAILY Centrum Silver 1 EACH tablet 1 tab PO DAILY aspirin [Adult Low Dose Aspirin] 81 mg tablet,delayed release (DR/EC) 81 mg PO DAILY [id number]-fmunndpnr-OY 3.5-10,000-1 mg/mL-unit/mL-% drops,suspension 4 drp otic (ear) BID albuterol sulfate [ProAir HFA] 90 mcg/actuation HFA aerosol inhaler 2 puff inhalation 6XD PRNQty: 8.5 0RF Discharge Instructions Instructions: Back Muscle Strain Additional Instructions: Use the eardrops as prescribed, I placed a referral to [facility] take tylenol every 6 hours as needed for discomfort Take the Valium as needed, this can be addictive and should not be combined with alcohol, do not operate a vehicle for 8 hours after taking this medication Please follow-up for repeat blood work on Monday and return earlier should you have new or worsening complaints Referrals: Rodolfo Cid DO [OSTEOPATHIC DOCTOR, ENT Surgical] HPI General Date/Time Provider Initiated Documentation: 04/23/25 08:44 . HPI Narrative: This 84-year-old gentleman who lives 6 months of the year in [place] in 6 months of the year in [place] presents with a report of back pain. He has been weedwacking. and shoveling 3 days ago and felt his back going to spasm. He apparently had COVID on 09 May and has been feeling under the weather since that time. He denies any current chest pain or shortness of breath. He denies any blood in his stool. States has had some gradual weight loss over the past several months. Takes iron for iron deficiency anemia at baseline. Attributes the weakness to his recent COVID has not been quite as interested food. He states has been drinking within normal limits denies any urinary component. Denies any strength or sensation changes to his extremities or changes in bowel or bladder. Related Data Home Medications ?Medication ?Instructions ?Recorded ?Confirmed lansoprazole 30 mg capsule,delayed 30 mg PO DAILY 12/2004/23/25 release vubpyvrq-itd-xqzvx acid 0.4 1 tab PO DAILY 04/09/15 mg-lycopene 300 mcg-lutein 250 mcg tablet (Centrum Silver) albuterol sulfate 90 mcg/actuation 2 puff inhalation 6 XD PRN #8.5 12/21/22 04/23/25 aerosol inhaler (ProAir HFA) grams aspirin 81 mg tablet,delayed 81 mg PO DAILY 04/08/25 0 04/23/25 release (Adult Low Dose Aspirin) diazepam 2 mg tablet (Valium) 2 mg PO BID PRN #10 tabs 04/23/25 lidocaine 5 % topical patch 1 patch topical DAILY #15 ea 04/23/25 (Lidoderm) tissxgoq-gubjydbdf-xviticuhg 3.5 4 drp otic (ear) BID 04/23/25 04/23/25 mg-10,000 unit/mL-1 % ear drops,susp ofloxacin 0.3 % ear drops 10 drp otic (ear) DAILY 7 da ys #5 04/23/25 mL Previous Rx's ?Medication ?Instructions ?Recorded albuterol sulfate 90 mcg/actuation 2 puff inhalation 6 XD PRN #8.5 12/21/22 aerosol inhaler (ProAir HFA) grams diazepam 2 mg tablet (Valium) 2 mg PO BID PRN #10 tabs 04/23/25 lidocaine 5 % topical patch 1 patch topical DAILY #15 ea 04/23/25 (Lidoderm) ofloxacin 0.3 % ear drops 10 drp otic (ear) DAILY 7 da ys #5 04/23/25 mL Allergies Allergy/AdvReac Type Severity Reaction Status Date / Time No Known Allergies Allergy Verified 04/23/25 08:49 General Stated Complaint: Nk/Back Pain JALYN: 4 Exam Narrative Exam Narrative: Alert and oriented 84-year-old male presenting in no acute distress, no abdominal tenderness right flank tenderness appreciated on exam without visible evidence of trauma rectal exam displays green dark-colored stool, negative straight leg raise bilaterally sensation and pulses intact to bilateral lower extremities lungs are clear to auscultation cardiac rate rhythm regular, neurovascularly intact all 4 extremities. Course Vital Signs Vital signs: Vital Signs Pulse 73 04/23/25 08:42 Respiratory Rate 15 04/23/25 08:42 Blood Pressure 145/98 H 04/23/25 08:42 Pulse Oximetry 99 04/23/25 08:42 Pulse 62 04/23/25 13:07 Respiratory Rate 15 04/23/25 08:42 Respiratory Effort Normal 04/23/25 10:58 Respiratory Depth Normal 04/23/25 10:58 Respiratory Pattern Normal 04/23/25 10:58 Blood Pressure 146/74 H 04/23/25 13:07 Blood Pressure Mean 102 04/23/25 10:58 Pulse Oximetry 100 04/23/25 13:07 Oxygen Delivery Method Room Air 04/23/25 10:58 Oxygen Flow Rate 0 04/23/25 10:58 Pain Level 2 04/23/25 10:58 Lab/Test Results Lab/Test Results: Laboratory Tests Range/Units 04/23/25 04/23/25 04/23/25 09:35 09:35 10:00 WBC (4.4-10.8) 10^3/uL 8.62 RBC (4.36-5.78) 10^6/uL 2.72 L Hgb (13.5-17.5) g/dL 7.9 L Hct (40.0-50.0) % 23.4 L MCV (80-95) fL 86 MCH (27.0-33.0) pg 29.0 MCHC (32.0-36.0) % 33.8 RDW (11.8-14.1) % 17.1 H Plt Count (130-400) 10^3/uL 151 MPV (8.0-11.0) fL 11.2 H Reticulocyte % (Auto) (0.5-2.4) % 1.4 Immature Gran % % 4.3 Neutrophils % % 68.6 Lymphocytes % % 18.2 Monocytes % % 6.8 Eosinophils % % 1.4 Basophils % % 0.7 Nucleated RBC % (0.0-0.3) % 0.0 Absolute Neutrophils (1.2-6.7) 10^3/uL 5.91 Absolute Lymphocytes (1.2-3.4) 10^3/uL 1.57 Absolute Monocytes (0.1-0.8) 10^3/uL 0.59 Absolute Eosinophils (0.0-0.7) 10^3/uL 0.12 Absolute Basophils (0.0-0.2) 10^3/uL 0.06 ESR (0-20) mm/hr 5 Sodium (136-145) mmol/L 140 Potassium (3.5-5.1) mmol/L 3.6 Chloride (98-107) mmol/L 107 Carbon Dioxide (21.0-32.0) mmol/L 28.0 Anion Gap (3-11) mmol/L 5.0 BUN (7-18) mg/dL 16 Creatinine (0.70-1.30) mg/dL 0.9 Est GFR (CKD-EPI 2020) (mL/min/1.73m2) 83.70 Glucose (74-106) mg/dL 103 Calcium (8.5-10.1) mg/dL 8.7 Iron (65-175) ug/dL 84 TIBC (250-450) ug/dL 229 L Transferrin % Sat (20-55) % 37 Ferritin (26-388) ng/mL 719 H Total Bilirubin (0.2-1.0) mg/dL 0.5 AST (15-37) U/L 20 ALT (16-63) U/L 21 Alkaline Phosphatase (46-116) U/L 93 C-Reactive Protein (<or=0.5) mg/dL 0.66 H Total Protein (6.4-8.2) g/dL 6.8 Albumin (3.4-5.0) g/dL 3.4 Urine Color (Yellow) Yellow Urine Clarity (Clear) Clear Urine pH (5-8) 6.5 Ur Specific [place] (1.005-1.025) 1.015 Urine Protein (Neg-Trace) mg/dL Negative Urine Ketones (Negative) mg/dL Negative Urine Blood (Negative) Negative Urine Nitrite (Negative) Negative Urine Bilirubin (Negative) Negative Urine Urobilinogen (Up to 0.2) mg/dL 0.2 Ur Leukocyte Esterase (Negative) Negative Urine Glucose (Negative) mg/dL Negative Add-On Test Request DONE DONE Range/Units 04/23/25 04/23/25 10:25 11:43 WBC (4.4-10.8) 10^3/uL RBC (4.36-5.78) 10^6/uL Hgb (13.5-17.5) g/dL Hct (40.0-50.0) % MCV (80-95) fL MCH (27.0-33.0) pg MCHC (32.0-36.0) % RDW (11.8-14.1) % Plt Count (130-400) 10^3/uL MPV (8.0-11.0) fL Reticulocyte % (Auto) (0.5-2.4) % Immature Gran % % Neutrophils % % Lymphocytes % % Monocytes % % Eosinophils % % Basophils % % Nucleated RBC % (0.0-0.3) % Absolute Neutrophils (1.2-6.7) 10^3/uL Absolute Lymphocytes (1.2-3.4) 10^3/uL Absolute Monocytes (0.1-0.8) 10^3/uL Absolute Eosinophils (0.0-0.7) 10^3/uL Absolute Basophils (0.0-0.2) 10^3/uL ESR (0-20) mm/hr Sodium (136-145) mmol/L Potassium (3.5-5.1) mmol/L Chloride (98-107) mmol/L Carbon Dioxide (21.0-32.0) mmol/L Anion Gap (3-11) mmol/L BUN (7-18) mg/dL Creatinine (0.70-1.30) mg/dL Est GFR (CKD-EPI 2020) (mL/min/1.73m2) Glucose (74-106) mg/dL Calcium (8.5-10.1) mg/dL Iron (65-175) ug/dL TIBC (250-450) ug/dL Transferrin % Sat (20-55) % Ferritin (26-388) ng/mL Total Bilirubin (0.2-1.0) mg/dL AST (15-37) U/L ALT (16-63) U/L Alkaline Phosphatase (46-116) U/L C-Reactive Protein (<or=0.5) mg/dL Total Protein (6.4-8.2) g/dL Albumin (3.4-5.0) g/dL Urine Color (Yellow) Urine Clarity (Clear) Urine pH (5-8) Ur Specific [place] (1.005-1.025) Urine Protein (Neg-Trace) mg/dL Urine Ketones (Negative) mg/dL Urine Blood (Negative) Urine Nitrite (Negative) Urine Bilirubin (Negative) Urine Urobilinogen (Up to 0.2) mg/dL Ur Leukocyte Esterase (Negative) Urine Glucose (Negative) mg/dL Add-On Test Request DONE Cancelled Medical Decision Making 84-year-old male presenting in no acute distress with some reproducible right flank tenderness given age and medical comorbidities I will order CT abdomen and pelvis with contrast Results: CT abdomen and pelvis radiology interpretation of my review does not show acute abnormality, hemoglobin interestingly is 7.9 decreased from 8.9 however this is in 2022 I do not have additional labs to compare this to patient is hemodynamically stable interestingly iron is fine TIBC is low and ferritin is elevated CRP is stable and guaiac does not show any melena or hematochezia urinalysis is stable and patient is ambulatory with steady gait negative orthostatics. Temperature 36.9 orally Assessment and plan: I suspect patient has baseline anemia and may need hank tional workup but sounds like he does take iron. It is unclear as to what his baseline hemoglobin and hematocrit are as he has a primary care in [place]. He is placed on the list to establish urgently with a PCP locally. It looks like the referrals been placed to [facility]. At her I have ordered a CBC for Monday which I will attempt to follow-up on for patient. Patient is hemodynamically stable I suspect his back pain is musculoskeletal in nature so I will give him 2 mg of Valium as needed pain with a for a total of 8 risk of addiction reviewed. In terms of the anemia he needs outpatient follow-up and may need hematology referral. For his [facility] exam he does have an ulceration or perforation of his tympanic membrane he has been using Debrox in having his ear irrigated over the course of the month by multiple different providers at this time I think he needs ENT referral I placed a referral to [facility]. I have also placed him on Cipro drops and encouraged him to stop using the Debrox at this time. Diagnosis: Left TM abnormality, anemia, lumbar strain Differentials include tympanic membrane perforation serum impaction acute GI bleed, ureterolithiasis PFSH All Active Problems (Updated 04/23/25 @ 12:51 by PATRICIA Loza) Anemia (Chronic) Tympanic membrane disorder (Acute) Back strain (Acute) Right ear impacted cerumen (Acute) COVID-19 (Acute) Former smoker (Acute) Anemia (Chronic) Community acquired pneumonia (Acute) Medical History Chronic obstructive pulmonary disease Mild, on PFTs in 2019. Never had clinical disease. GERD (gastroesophageal reflux disease) Surgical History S/P appendectomy S/P hernia repair Social History Smoking/Tobacco Use Status: Former Tobacco Use Smoking risk assessment performed?: Yes Alcohol Intake: current Alcohol Intake frequency: a few times a week Counseling given: Yes Counseling provided: provider counseling and reduce to 2 or less/day Drug use: Never Substance use type: does not use Do you feel safe at home: Yes Do you feel safe in your relationship?: Yes Additional Social history: Lives with in [place] in winter, [place] in the summer. Former [employer].
== END 2025-04-23 13:07 | disposition home or self-care (01) ==
PROVIDERS: Emergency Provider Physician Assistant
DX: S39.012A Strain of muscle, fascia and tendon of lower back, initial encounter (principal); D64.9 Anemia, unspecified; X58.XXXA Exposure to other specified factors, initial encounter
CPT/HCPCS: 96375; 36415; 96374; 80053; 85652; 99285; 74177; 81003; 82728; 83540; 83550; 85025; 85045; 86140; 99283; J0131; J3360; J3490

== ENCOUNTER 2025-04-28 07:23 | Outpatient (CLI) | payer MEDICARE, OTHER, SELFPAY ==
[2025-04-28 10:01] LABS: Abs Immature Grans 0.44 10^3/uL (0.0-0.06); HCT 25.8 % (40.0-50.0); HGB 8.6 g/dL (13.5-17.5); Immature Grans % 4.2 %; MCH 29.0 pg (27.0-33.0); MCHC 33.3 % (32.0-36.0); MCV 87 fL (80-95); MPV 11.7 fL (8.0-11.0); Platelet Count 165 10^3/uL (130-400); RBC 2.97 10^6/uL (4.36-5.78); RDW 17.2 % (11.8-14.1); RDW-SD 54.2 fL; WBC 10.36 10^3/uL (4.4-10.8)
== END 2025-04-28 07:24 | disposition home or self-care (01) ==
LOC: LBO 04-29 07:24
PROVIDERS: Visit Provider Physician Assistant
DX: D64.9 Anemia, unspecified (principal)
CPT/HCPCS: 36415; 85025